=== PATIENT | male | born 1955 | race Caucasian/White ===

== ENCOUNTER → 2017-07-22 | Outpatient (CLI) | payer BC ==
[~2017-07-22] MED LIST: AFRIN15 ML NS; AMOXICILLIN 50500 MG PO; BAYER CHEWABLE81 MG PO; CRESTOR20 MG PO; HYDROCODON-ACE1 EAC7 PO; IBUPROFEN 400400 M2 PO; LANTUS SUBQ; LANTUS100 UNIT/M SUBQ; LEVOTHYROXIN0.075 MG PO; LIPITOR 20 MG T20 M1 PO; LISINOPRIL10 MG PO; LISINOPRIL2.5 MG PO; METFORMIN HCL500 MG PO; NITROGLYCERIN0.4 MG SUBLING; NORVASC5 MG PO; NOVOLOG100 UNIT/1 SUBQ; PANTOPRAZOLE SO40 MG PO; PLAVIX 75 MG TA75 M1 PO; PRILOSEC20 MG PO; TRAMADOL 50 MG50 MG PO; TRESIBA FL100 UNIT/1 SUBLING
--- NOTE | 2017-07-23 15:55 | CNG ---
[address] [address] CYTO-NONGYN REPORT PROCEDURE Name: SANGITA VERMA Room: [facility]#: [id number] Admission: 07/22/17 Date of : 57 Discharge: Report #: [id number] Path Case #: [id number] CYTOPATHOLOGY REPORT COLLECTION DATE: 07/22/2017 RECEIVED DATE: 07/22/2017 SUBMITTING PHYS: Dr. Christiano Gaffney OTHER PHYS: Dr. Yeimy Madrid MD CLINICAL HISTORY: 1.0 x .88 x 1.0 mid left lobe SPECIMEN(S) RECEIVED: A.Fine needle aspiration, Left lobe thyroid * * * * * * * * * * * * FINAL DIAGNOSIS: A. Fine needle aspiration, Left lobe thyroid: - Knapp category: Benign - Thyroid follicular cells and colloid present, consistent with adenomatous nodule/goiter. PATHOLOGIST: Ancelmo Montana M.D. REPORT ELECTRONICALLY SIGNED BY: Ancelmo Montana M.D. DATE/TIME: 07/23/2017 15:55 * * * * * * * * * * * * GROSS PATHOLOGY: A. Fine needle aspiration, Left lobe thyroid: The specimen is labeled "Sangita Verma" and consists of eight fixed slides and eight air dried slides. Twenty-one mL of bloody fluid in fixative from the needle rinse is also submitted and one ThinPrep slide and an alcohol fixed cell block were prepared from this material. (mm 1.11.2018) PROFESSOR OF ARCHAEOLOGY(S): TRENT Lezama([facility]) INITIAL CPT CODE(S): A; 34471, 71236 Professional services performed [place] [facility] [place] [address] Technical services performed by [facility] at [address] [place] [address], [address], [place] [address]. [facility] [address] [place] [address], [address] [place] [address] CYTO-NONGYN REPORT PROCEDURE Name: SANGITA VERMA Room: [facility]#: [id number] Admission: 07/22/17 Date of : 57 Discharge: Report #: [id number] Path Case #: [id number] PHONE: [phone] DIRECTOR: Thomas Petersen M.D. * * * END OF REPORT * * *
== END ==
LOC: M.ULTRA 07:51
DX: E04.1 Nontoxic single thyroid nodule (principal); I95.9 Hypotension, unspecified; I25.2 Old myocardial infarction; Z88.6 Allergy status to analgesic agent; Z88.1 Allergy status to other antibiotic agents; Z79.82 Long term (current) use of aspirin; Z88.8 Allergy status to other drugs, medicaments and biological substances; Z79.4 Long term (current) use of insulin

== ENCOUNTER 2017-11-14 15:44 | Emergency (ER) | payer BC ==
[~2017-11-14] VITALS: Ht 188 cm; Wt 98.9 kg
[~2017-11-14 15:44] MED LIST changes: -AMOXICILLIN 50500 MG PO; -CRESTOR20 MG PO; -NOVOLOG100 UNIT/1 SUBQ; -TRAMADOL 50 MG50 MG PO; -TRESIBA FL100 UNIT/1 SUBLING
[2017-11-14] MEDS ORDERED: CRESTOR20 MG PO (15:58)
[2017-11-14] MEDS ORDERED: AMOXICILLIN 50500 MG PO (15:58)
[2017-11-14] MEDS ORDERED: NOVOLOG100 UNIT/1 SUBQ (15:59)
[2017-11-14] MEDS ORDERED: TRESIBA FL100 UNIT/1 SUBLING (15:59)
[2017-11-14] MEDS ORDERED: TRAMADOL 50 MG50 MG PO (16:00)
[2017-11-14 16:02] LABS: ABSOLUTE BASOPHILS 0.1 thou/uL (0.0-0.2); ABSOLUTE EOSINOPHILS 0.1 thou/uL (0.0-0.7); ABSOLUTE LYMPHOCYTES 3.7 thou/uL (0.8-5.3); ABSOLUTE MONOCYTES 0.8 thou/uL (0.0-1.2); ABSOLUTE NEUTROPHILS 6.9 thou/uL (1.6-8.1); BASOPHILS 0.8 %; EOSINOPHILS 0.8 %; HEMATOCRIT 43.7 % (42.0-52.0); HEMOGLOBIN 14.8 gm/dL (14.0-18.0); LYMPHOCYTES 31.7 %; MCH 29.8 pg (26.0-34.0); MCHC 33.9 g/dL (28.0-37.0); MCV 88.1 fL (80.0-100.0); MONOCYTES 6.9 %; MPV 8.1 fl. (7.2-11.1); NUCLEATED RBCS 0 /100WBC; PLATELET COUNT* 243 thou/uL (150-400); POLYS 59.8 %; RBC 4.96 mil/uL (4.50-6.00); RDW-CV 14.2 % (10.5-14.5); WBC 11.6 thou/uL (4.0-11.0)
[2017-11-14 16:16] LABS: ANION GAP 11 mmol/L (7-16); BUN 17 mg/dL (7-18); CALCIUM 9.2 mg/dL (8.5-10.1); CHLORIDE 103 mmol/L (98-107); CO2 25 mmol/L (21-32); CREATININE 1.2 mg/dL (0.6-1.3); GLUCOSE 153 mg/dL (70-99); POTASSIUM 3.7 mmol/L (3.5-5.1); SODIUM 139 mmol/L (136-145)
[2017-11-14 16:18] LABS: APTT 27.8 Seconds (25.0-31.3); INR 1.1; PROTIME 10.6 Seconds (9.20-11.50)
[2017-11-14 16:27] LABS: ALBUMIN 3.4 g/dL (3.4-5.0); ALKALINE PHOSPHATASE 53 U/L (46-116); LIPASE 141 U/L (73-393); MAGNESIUM 1.7 mg/dL (1.8-2.4); NT-PRO BRAIN NAT PEPTIDE 71 pg/mL (<300); SGOT 24 U/L (15-37); SGPT 40 U/L (30-65); TOTAL BILIRUBIN 0.5 mg/dL (<0.1-1.0); TOTAL PROTEIN 7.4 g/dL (6.4-8.2); TROPONIN-I LEVEL <0.06 ng/mL (<0.06)
[2017-11-14 18:04] VITALS: BP 158/83
--- NOTE | 2017-11-15 14:09 | EKG ---
[place] [address] ELECTROCARDIOGRAM REPORT Name: KASSIE VERMA Room: [facility]#: [id number] Admission: 11/14/17 Attend Phys: Discharge: 11/14/17 Date of : 57 Report #: [id number] THIS REPORT FOR: //name// [facility] ED Test Date: 2017-11-14 Test Time: 15:48:07 Pat Name: KASSIE VERMA Department: Room: Gender: M Clinical Laboratory Technologist: Sony MEEKS : 1955 Requested By: Mehran Corley Order Number: [id number] MD: Agustín Quiñonez Measurements Intervals [place] Rate: 78 P: 49 NE: 148 QRS: 21 QRSD: 102 T: 171 QT: 406 QTc: 463 Interpretive Statements Sinus rhythm Nonspecific T abnrm, anterolateral leads; consider ischemia Baseline wander in lead(s) V3 Compared to ECG 06/07/2015 21:26:13 No significant changes Electronically Signed On 11-15-2017 14:09:34 CDT by Agustín Quiñonez [email or web address] <ELECTRONICALLY SIGNED> By: Agustín Quiñnoez MD, [facility] 11/15/17 1409 1548 1548 Agustín Quiñonez MD, [facility] /EPI
--- NOTE | 2017-11-15 14:10 | EKG ---
[place] [address] ELECTROCARDIOGRAM REPORT Name: BAYRONKASSIE Isabella Room: [facility]#: [id number] Admission: 11/14/17 Attend Phys: Discharge: 11/14/17 Date of : 57 Report #: [id number] THIS REPORT FOR: //name// [facility] ED Test Date: 2017-11-14 Test Time: 17:32:32 Pat Name: KASSIE VERMA Department: Room: Gender: M Retail Account Representative: ERVIN : 1955 Requested By: Mehran Corley Order Number: [id number] MD: Agustín Quiñonez Measurements Intervals [place] Rate: 52 P: 17 [place]: 173 QRS: 12 QRSD: 111 T: 121 QT: 466 QTc: 434 Interpretive Statements Sinus rhythm Abnormal T, consider ischemia, lateral leads Compared to ECG 06/07/2015 21:26:13 T-wave abnormality now present Possible ischemia now present Electronically Signed On 11-15-2017 14:09:58 CDT by Agustín Quiñonez [email or web address] <ELECTRONICALLY SIGNED> By: Agustín Quiñonez MD, [facility] 11/15/17 1409 1732 1732 Agustín Quiñonez MD, [facility] /EPI
== END 2017-11-14 18:05 | disposition home or self-care (01) ==
LOC: M.ERS 15:44
PROVIDERS: Family Medicine
DX: R07.89 Other chest pain (principal); E11.9 Type 2 diabetes mellitus without complications; Z88.1 Allergy status to other antibiotic agents; Z88.6 Allergy status to analgesic agent; Z88.8 Allergy status to other drugs, medicaments and biological substances; Z95.5 Presence of coronary angioplasty implant and graft; Z79.4 Long term (current) use of insulin

== ENCOUNTER 2018-07-15 10:46 | Observation (INO) | payer BC ==
[~2018-07-15] VITALS: Ht 188 cm; Wt 98.4 kg
[2018-07-15] VITALS (10 sets, daily range): BP systolic 113–159; BP diastolic 66–83
[~2018-07-15 10:46] MED LIST changes: +AMOXICILLIN 50500 MG PO; +CRESTOR20 MG PO; +NOVOLOG100 UNIT/1 SUBQ; +TRAMADOL 50 MG50 MG PO; +TRESIBA FL100 UNIT/1 SUBLING
[2018-07-15 11:12] LABS: ABSOLUTE BASOPHILS 0.1 thou/uL (0.0-0.2); ABSOLUTE EOSINOPHILS 0.1 thou/uL (0.0-0.7); ABSOLUTE LYMPHOCYTES 2.6 thou/uL (0.8-5.3); ABSOLUTE MONOCYTES 0.7 thou/uL (0.0-1.2); BASOPHILS 1.2 %; EOSINOPHILS 1.5 %; HEMATOCRIT 49.9 % (42.0-52.0); HEMOGLOBIN 16.7 gm/dL (14.0-18.0); LYMPHOCYTES 27.3 %; MCH 29.5 pg (26.0-34.0); MCHC 33.5 g/dL (28.0-37.0); MCV 88.1 fL (80.0-100.0); MONOCYTES 7.1 %; MPV 9.1 fl. (7.2-11.1); NUCLEATED RBCS 0 /100WBC; PLATELET COUNT* 244 thou/uL (150-400); POLYS 62.9 %; RBC 5.67 mil/uL (4.50-6.00); RDW-CV 14.1 % (10.5-14.5); WBC 9.6 thou/uL (4.0-11.0)
[2018-07-15 11:19] LABS: PROTIME 10.4 Seconds (9.20-11.50)
[2018-07-15 11:21] LABS: ANION GAP 10 mmol/L (7-16); BUN 15 mg/dL (7-18); CALCIUM 9.7 mg/dL (8.5-10.1); CHLORIDE 98 mmol/L (98-107); CO2 28 mmol/L (21-32); GLUCOSE 258 mg/dL (70-99); POTASSIUM 4.3 mmol/L (3.5-5.1); SODIUM 136 mmol/L (136-145)
[2018-07-15 11:31] LABS: ALBUMIN 3.7 g/dL (3.4-5.0); ALKALINE PHOSPHATASE 60 U/L (46-116); LIPASE 152 U/L (73-393); MAGNESIUM 1.7 mg/dL (1.8-2.4); NT-PRO BRAIN NAT PEPTIDE 66 pg/mL (<300); SGOT 50 U/L (15-37); SGPT 65 U/L (30-65); TOTAL BILIRUBIN 0.6 mg/dL (<0.1-1.0); TOTAL PROTEIN 8.1 g/dL (6.4-8.2); TROPONIN-I LEVEL <0.06 ng/mL (<0.06)
--- NOTE | 2018-07-15 11:43 | NUR ---
SEE CODE STEMI FLOW SHEET
[2018-07-15 15:33] LABS: TROPONIN-I LEVEL <0.06 ng/mL (<0.06)
--- NOTE | 2018-07-15 15:49 | NUR ---
PATIENT ARRIVED TO ICU ROOM 03 FROM THE DIRECT CARE WORKER AT 1320 THIS AFTERNOON. PATIENT WAS AWAKE AND ALERT. RIGHT GROIN SITE IS CLEAN, DRY, AND INTACT WITHOUT HEMATOMA. NO BRUIE NOTED. PATIENTS AT BEDSIDE. FREQUENT VITALS AND GROIN CHECK CHARTED. NO FURTHER CONCERNS AT THIS TIME. WILL CONTINUE TO MONITOR AND CARE PER PLAN OF CARE.
--- NOTE | 2018-07-15 18:15 | EKG ---
[place] [address] ELECTROCARDIOGRAM REPORT Name: KASSIE VERMA Room: [address] M.R.#: [id number] Admission: 07/15/18 Attend Phys: Rob Suarez MD, F Discharge: Date of : 57 Report #: [id number] THIS REPORT FOR: //name// [facility] ED Test Date: 2018-07-15 Test Time: 10:50:37 Pat Name: KASSIE VERMA Department: Room: [facility] Gender: M Magistrate: Sony MEEKS : 1955 Requested By: Bertrand Weinstein Order Number: [id number] MD: Jeffrey Skelton Measurements Intervals [place] Rate: 47 P: 6 NM: 151 QRS: 14 QRSD: 152 T: 177 QT: 449 QTc: 397 Interpretive Statements Sinus bradycardia Premature atrial contraction Nonspecific ST-T wave abnormality, consider ischemia Compared to ECG 11/14/2017 17:32:32 ST-T wave abnormalities appear more pronounced Electronically Signed On 07-15-2018 18:15:44 OUTSIDE FOOD SERVER by Jeffrey Skelton [email or web address] <ELECTRONICALLY SIGNED> By: Jeffrey Skelton MD, FACC 07/15/18 1815 1050 1050 Jeffrey Skelton MD, [facility] /EPI
--- NOTE | 2018-07-15 18:16 | EKG ---
[place] [address] ELECTROCARDIOGRAM REPORT Name: KASSIE VERMA Room: [address] M.R.#: [id number] Admission: 07/15/18 Attend Phys: Rob Suarez MD, F Discharge: Date of : 57 Report #: [id number] THIS REPORT FOR: //name// [facility] ED Test Date: 2018-07-15 Test Time: 11:21:42 Pat Name: KASSIE VERMA Department: Room: [address] Gender: M Photograph Editor: Sony MEEKS : 1955 Requested By: Rob Suarez Order Number: [id number] MD: Jeffrey Skelton Measurements Intervals [place] Rate: 79 P: [place]: QRS: 43 QRSD: 105 T: 133 QT: 389 QTc: 447 Interpretive Statements Accelerated junctional rhythm Incomplete right bundle branch block Inferior infarct, acute (RCA) Probable RV involvement, suggest recording right precordial leads Compared to ECG 11/14/2017 17:32:32 Accelerated junctional rhythm now present RSR' in V1 or V2 now present Myocardial infarct finding now present Sinus rhythm no longer present T-wave abnormality no longer present Possible ischemia no longer present Electronically Signed On 07-15-2018 18:16:29 MEAL COOK by Jeffrey Skelton [email or web address] <ELECTRONICALLY SIGNED> By: Jeffrey Skelton MD, [facility] 07/15/18 1816 112 112 Jeffrey Skelton MD, [facility] /EPI
--- NOTE | 2018-07-15 18:16 | EKG ---
[place] [address] ELECTROCARDIOGRAM REPORT Name: KASSIE VERMA Room: [address] M.R.#: [id number] Admission: 07/15/18 Attend Phys: Rob Suarez MD, F Discharge: Date of : 57 Report #: [id number] THIS REPORT FOR: //name// [facility] ED Test Date: 2018-07-15 Test Time: 11:12:55 Pat Name: KASSIE VERMA Department: Room: [facility] Gender: M Sixth Grade Teacher: Sony MEEKS : 1955 Requested By: Bertrand Weinstein Order Number: [id number] MD: Jeffrey Skelton Measurements Intervals [place] Rate: 74 P: [place]: QRS: 26 QRSD: 115 T: 133 QT: 396 QTc: 440 Interpretive Statements Accelerated junctional rhythm Incomplete right bundle branch block Inferior infarct, acute (RCA) Probable RV involvement, suggest recording right precordial leads Compared to ECG 11/14/2017 17:32:32 Accelerated junctional rhythm now present Incomplete right bundle-branch block now present Myocardial infarct finding now present Sinus rhythm no longer present T-wave abnormality no longer present Possible ischemia no longer present Electronically Signed On 07-15-2018 18:16:03 LOG YARD DERRICK OPERATOR by Jeffrey Skelton [email or web address] <ELECTRONICALLY SIGNED> By: Jeffrey Skelton MD, [facility] 07/15/18 1816 11 111 Jeffrey Skelton MD, [facility] /EPI
--- NOTE | 2018-07-15 18:19 | EKG ---
[place] [address] ELECTROCARDIOGRAM REPORT Name: KASSIE VERMA Room: [address] M.R.#: [id number] Admission: 07/15/18 Attend Phys: Rob Suarez MD, F Discharge: Date of : 57 Report #: [id number] THIS REPORT FOR: //name// [facility] Test Date: 2018-07-15 Test Time: 14:02:08 Pat Name: KASSIE VERMA Department: Room: [facility] Gender: M Fancy Packer: : 1955 Requested By: Bertrand Weinstein Order Number: [id number] MD: Jeffrey Skelton Measurements Intervals [place] Rate: 53 P: 52 [place]: 163 QRS: 7 QRSD: 107 T: 115 QT: 467 QTc: 439 Interpretive Statements Sinus rhythm Nonspecific T abnormalities, lateral leads Compared to ECG 11/14/2017 17:32:32 Possible ischemia no longer present T-wave abnormality still present Electronically Signed On 07-15-2018 18:19:15 SENIOR CONTROL SYSTEMS ENGINEER by Jeffrey Skelton [email or web address] <ELECTRONICALLY SIGNED> By: Jeffrey Skelton MD, FACC 07/15/18 1819 1402 1402 Jeffrey Skelton MD, FAC /EPI
[2018-07-16] VITALS (12 sets, daily range): BP systolic 107–160; BP diastolic 51–99
--- NOTE | 2018-07-16 04:23 | NUR ---
PT RESTING IN BED MOST OF NIGHT WITH NO COMPLAINTS OF CHEST PAINS OR SHORTNESS OF BREATH. ASSESSMENT CHARTED. CATH SITE IS STILL C/D/INTACT WITH NO HEMOTOMA. VSS. PT MOVED TO CHAIR PER REQUEST. CALL LIGHT IN REACH. ALL NEEDS ADDRESSED. CONTINUE WITH PLAN OF CARE.
[2018-07-16 04:26] LABS: HEMATOCRIT 44.6 % (42.0-52.0); HEMOGLOBIN 14.9 gm/dL (14.0-18.0); MCH 29.6 pg (26.0-34.0); MCHC 33.4 g/dL (28.0-37.0); MCV 88.8 fL (80.0-100.0); MPV 8.6 fl. (7.2-11.1); RBC 5.02 mil/uL (4.50-6.00); RDW-CV 14.2 % (10.5-14.5); WBC 11.1 thou/uL (4.0-11.0)
[2018-07-16 04:49] LABS: ALBUMIN 3.2 g/dL (3.4-5.0); ALKALINE PHOSPHATASE 42 U/L (46-116); ANION GAP 9 mmol/L (7-16); BUN 19 mg/dL (7-18); CALCIUM 8.5 mg/dL (8.5-10.1); CHLORIDE 104 mmol/L (98-107); CHOLESTEROL 138 mg/dL (<200); CK-MB MASS 1.5 ng/mL (<0.5-3.6); CO2 26 mmol/L (21-32); CREATININE 1.1 mg/dL (0.6-1.3); GLUCOSE 141 mg/dL (70-99); HDL CHOLESTEROL 37 mg/dL (>40); LDL CHOLESTEROL 71 mg/dL (<100); POTASSIUM 4.2 mmol/L (3.5-5.1); SGOT 42 U/L (15-37); SGPT 54 U/L (30-65); SODIUM 139 mmol/L (136-145); TC:HDL 3.7 Ratio (Not establshd); TOTAL BILIRUBIN 0.6 mg/dL (<0.1-1.0); TOTAL PROTEIN 6.8 g/dL (6.4-8.2); TRIGLYCERIDE 152 mg/dL (<150); TROPONIN-I LEVEL 0.12 ng/mL (<0.06); VLDL 30 mg/dL (<40)
[2018-07-16 05:05] LABS: SERUM ASSESSMENT Clear
--- NOTE | 2018-07-16 11:57 | EKG ---
[place] [address] ELECTROCARDIOGRAM REPORT Name: KASSIE VERMA Room: [address] M.R.#: [id number] Admission: 07/15/18 Attend Phys: Rob Suarez MD, F Discharge: Date of : 57 Report #: [id number] THIS REPORT FOR: //name// [facility] Test Date: 2018-07-16 Test Time: 07:40:23 Pat Name: KASSIE VERMA Department: Room: [address] Gender: M After School Coordinator: : 1955 Requested By: Rob Suarez Order Number: [id number] MD: Rob Suarez Measurements Intervals [place] Rate: 51 P: 43 [place]: 156 QRS: 14 QRSD: 105 T: 123 QT: 462 QTc: 426 Interpretive Statements Sinus bradycardia Nonspecific T abnormalities, lateral leads Compared to ECG 07/15/2018 14:02:08 No significant changes Electronically Signed On 07-16-2018 11:57:25 SENIOR CLINICIAN by Rob Suarez [email or web address] <ELECTRONICALLY SIGNED> By: Rob Suarez MD, [facility] 07/16/18 1157 0740 9 Rob Suarez MD, [facility] /EPI
--- NOTE | 2018-07-16 13:28 | H ---
[place] [address] HISTORY AND PHYSICAL Name: KASSIE VERMA Room: [address] M.R.#: [id number] Admission: 07/15/18 Attend Phys: Rob Suarez MD, F Discharge: Date of : 57 Report #: [id number] THIS REPORT FOR: //name// CC: Rob Moreno DATE OF SERVICE: 07/15/2018 PRIMARY CARE PHYSICIAN: Yeimy Verma Meng, DO HISTORY OF PRESENT ILLNESS: The patient is a 62-year-old white male who came to the Emergency Room complaining of chest pain. The history is obtained from the . No old records available. The patient presented in 2014 with chest pain. He had 2 coronary artery stents placed at [facility] on the [place]. Apparently, he had restenosis. According to , he had to have another stent placed a month later. He has done well since that time. He now takes only an aspirin a day. He is followed by a lockstitch coat joiner, Dr. Thorpe who he sees in [place], [place] from . He goes for walks regularly. He was doing well until last night, at about 6:00 p.m. he began to have some chest pressure. It occurred off and on. When he woke up this morning, again he had some chest pressure. It tended to occur off and on. It radiated to his left arm. It made him nausea and diaphoretic. His drove him to the Emergency Room. He was found to be having acute inferior STEMI. I was asked to see him on an emergent basis. He denies any recent shortness of breath. He does feel lightheaded occasionally. He denied any palpitations or syncope. PAST MEDICAL HISTORY: He has had hernia repair and tonsillectomy. He has a history of non-Hodgkin's lymphoma. He finished chemotherapy about 3 years ago. He has diabetes and hyperlipidemia. MEDICATIONS: Consists of tramadol, insulin, Crestor, Protonix, aspirin, Synthroid. ALLERGIES: HE HAS AN ALLERGY TO AN ANTIBIOTIC. FAMILY HISTORY: His father had a heart attack. SOCIAL HISTORY: He is . He and his live here in [place]. He is a retired Dental Office Receptionist. Quit smoking years ago. No alcohol abuse. REVIEW OF SYSTEMS: No history of stroke, asthma or peptic ulcer disease. He has had elevated liver function studies in the past, worsening on higher doses of statin. No history of kidney disease, no psychiatric history, [place] [address] HISTORY AND PHYSICAL Name: KASSIE VERMA Room: [address] M.RTrav#: [id number] Admission: 07/15/18 Attend Phys: Rob Suarez MD, F Discharge: Date of : 57 Report #: [id number] PHYSICAL EXAMINATION: GENERAL: Revealed a middle-aged male, appeared in mild distress. VITAL SIGNS: Blood pressure 130/70, pulse is 70. HEENT: He is anicteric. Conjunctivae pink. Mucous membranes moist. NECK: Veins does not appear distended. No carotid bruits. CHEST: Clear to auscultation. CARDIOVASCULAR: Regular rate and rhythm, no murmur. ABDOMEN: Soft. EXTREMITIES: Had no edema. Posterior tibial pulse 2+ bilaterally. LABORATORY DATA: ECG shows sinus rhythm, inferior ST segment elevation consistent with inferior STEMI. IMPRESSION AND RECOMMENDATIONS: 1. Acute inferior ST elevation myocardial infarction, recommend cardiac catheterization. 2. Coronary artery disease with previous stents. 3. History of non-Hodgkin's lymphoma. 4. Hyperlipidemia. The patient is on a statin drug. <ELECTRONICALLY SIGNED> By: Rob Suarez MD, FACC 07/16/18 1328 1142 1202Davihal Suarez MD, FACC /nt
[2018-07-16 14:45] LABS: CK-MB MASS 2.1 ng/mL (<0.5-3.6); CREATININE 1.1 mg/dL (0.6-1.3); TROPONIN-I LEVEL 0.27 ng/mL (<0.06)
--- NOTE | 2018-07-16 16:50 | NUR ---
PT CARE ASSUMED AFTER REPORT. ASSESSMENT COMPLETE. SB ON MONITOR. DR DANIELS NOTIFIED THAT PT HR IN THE 40'S. METOPROLOL DOSE DECREASED. SURGICAL SITE BANDAGE C/D/I. NO BRUISING NOTED. NOW TELE STATUS. DENIES PAIN. PROGRESSING TOWARDS GOALS.
[2018-07-17 04:04] VITALS: BP 161/82
--- NOTE | 2018-07-17 06:07 | NUR ---
PT. PROGRESSING TOWARDS GOALS. SINUS BRADYCARDIA THROUGHOUT SHIFT. DENIED CHEST PAIN THROUGHOUT SHIFT. UP AD [place] INDEPENDENTLY. POSSIBLE DISCHARGE TODAY. WILL CONTINUE TO MONITOR.
[2018-07-17 08:00] VITALS: BP 127/64
[2018-07-17] MEDS ORDERED: PLAVIX 75 MG TA75 M1 PO (09:21)
[2018-07-17 09:38] VITALS: BP 127/64
[2018-07-17] MEDS ORDERED: LOPRESSOR25 PO (10:35)
--- NOTE | 2018-07-18 16:40 | CARD ---
[address] [address] CARDIAC CATH REPORT Name: KASSIE VERMA Room: [address] Madhu#: [id number] Admission: 07/15/18 Attend Phys: Rob Suarez MD, F Discharge: 07/17/18 Date of : 57 Report #: [id number] THIS REPORT FOR: //name// APPROVED REPORT Study performed: 07/15/2018 11:11:15 Patient Details Patient Status: ED Room #: The patient is a 62 year-old male Event Personnel Rob Suarez Assayer, Hina Ha RN Chocolate Molder, Cady Mccall RTR Monitor, Samson Baig (R) Scrub Procedures Performed Art Access - R femoral artery* Left Heart Cath w/or w/o Coronaries LHC VALENTIN Place w/wo Plasty Single RCA Hemostasis w/ Angioseal Indication STEMI , Chest pain Risk Factors Diabetes Previous Procedures/Diagnoses Previous PCI Admission/Lab Medications/Medications given during procedure Glycoprotein IllbIlla Inhibitors, Heparin Unfract. Procedure Narrative The patient was brought emergently to the Cardiac Catheterization Laboratory and was prepped and draped in a sterile manner. The right femoral was infiltrated with 2% Lidocaine subcutaneous anesthesia. A 6fr Ultimum Sheath sheath was inserted into the right femoral artery. Coronary angiography was performed using coronary diagnostic catheters. The right coronary system was accessed and visualized with a Diagnostic 6Fr JR4 catheter. The left coronary system was accessed and visualized with a Diagnostic 6Fr JL4 catheter. The left ventricle was accessed and visualized with a Diagnostic 6Fr angled pigtail catheter. Left ventricular/[place]ortic [place] [address] CARDIAC CATH REPORT Name: KASSIE VERMA Room: [address] Madhu#: [id number] Admission: 07/15/18 Attend Phys: Rob Suarez MD, F Discharge: 07/17/18 Date of : 57 Report #: [id number] catheter pullback. Left ventriculogram was performed in DANIEL projection. Closure device was deployed with a 6 Fr 6Fr Angioseal. The patient tolerated the procedure well and there were no complications associated with the procedure. There was no hematoma. Intraoperative Conscious Sedation Sedation start time: 1142 Case end Time: 1253 Fentanyl 25 mcg Versed 2 mg Fluoro Time: 16.7 minutes Dose: DAP 989390 cGycm2 1837 mGy Contrast Type and Amount: Omnipaque 300 ml Coronary Angiography The patient's coronary anatomy is co- dominant. Diagnostic Cath Left Main 0% stenosis LAD proximal stent with 0% restenosis, distal 60% stenosis noted Diagonal 2 80% mid stenosis Circumflex mid stent with 60% restenosis OM1 proximal stent with 80% resenosis Right Coronary ostial stent with 99% restenosis with thrombus. stent at acute margin with 90% restenosis R PDA 70% mid stenosis Left Ventriculography The left ventricle is normal in size with normal contractility. The left ventricular ejection fraction is estimated to be 55-60%. Left ventricular wall motion abnormalities are not present. There is no mitral insufficiency. Hemodynamics The aortic pressure is 144/61 mmHg with a mean of 95 mmHg. The left ventricular pressure is 139/10 mmHg with a mean of mmHg. The left ventricular end diastolic pressure is 14 mmHg. There was no gradient across the aortic valve upon pullback. Pullback from the left ventricle to the aorta revealed no gradient across the aortic valve. PCI Technique Lesion Anticoagulation was achieved with Heparin. bolus of IV aggrastat given Percutaneous coronary [place] [address] CARDIAC CATH REPORT Name: KASSIE VERMA Isabella [address]: [address] [id number] Admission: 07/15/18 Attend Phys: Rob Suarez MD, F Discharge: 07/17/18 Date of : 57 Report #: [id number] right coronary artery. The lesion stenosis prior to intervention was 90% with FRIDA 3 flow. A 6FR JCR 4 100CM Guide Catheter was used to engage the rca ostium. A BMW 190cm Interventional Guidewire was used to cross the lesion. BALLOON DILATION A Balloon catheter Trek RX 2.5 X 8 was inserted and inflated up to 8.00atm for 9seconds. Repeat angiography revealed the following post-dilatation results: 60% stenosis. Additional Inflation: 10.00atm for 7seconds. Additional Inflation: 11.00atm for 22seconds. Unable to advance neither a drug eluting nor bare metal stent despite use of sundeep guide wire. Difficutly appeared to be secondary to tortuosity and calcification of rca. Performed PTCA only. Final angiography reveals 60 % stenosis with FRIDA 3 flow. PCI Technique Lesion 2 Percutaneous Coronary Intervention was performed on the proximal right coronary artery. Percutaneous coronary intervention was performed on the proximal right coronary artery. The lesion stenosis prior to intervention was 99% with FRIDA 3 flow. A 6FR JCR 4 100CM Guide Catheter was used to engage the rca ostium. A BMW 190cm Interventional Guidewire was used to cross the lesion. Balloon Dilation A Balloon catheter Trek RX 2.5 X 8 was inserted and inflated up to 10.00atm for 11seconds. Repeat angiography revealed the following post-dilatation results: 50% stenosis. Additional Inflation: 8.00atm for 5seconds. Additional Inflation: 10.00atm for 9seconds. Proximal thrombus noted. Stent Deployment A drug-eluting stent 2.5 mm x 12 mm was inserted and inflated up to 8.00atm for 5seconds. Repeat angiography revealed the following post-stent deployment results: 0% stenosis without thrombus. Additional Inflation: 10.00atm for 11seconds. Additional Inflation: 10.00atm for 9seconds. Final angiography reveals 0 % stenosis with FRIDA 3 flow. Conclusion 1. no restenosis of stent in proximal lad 2. 60% restenosis of stent in mid circumflex and 80% restenosis of stent in first marginal branch 3. 99% restenosis of stent in ostium of rca, and 90% stenosis of [address] [address] CARDIAC CATH REPORT Name: KASSIE VERMA Room: [address] TatyanaTravR.#: [id number] Admission: 07/15/18 Attend Phys: Rob Suarez MD, F Discharge: 07/17/18 Date of : 57 Report #: [id number] stent in mid rca 4. successful placement of a drug eluting stent in the ostium of the rca 5. PTCA of the mid rca but unable to place stent because of tortuosity and calcification 6. normal LV function Recommendations Cardiac Rehabilitation Referral Aggressive Medical Therapy Medications Administered Clopidogrel <ELECTRONICALLY SIGNED> By: Rob Suarez MD, FACC 07/18/18 1640 1640 1640Davasile Suarez MD, [facility] /INF
--- NOTE | 2018-07-18 16:44 | D ---
[address] [address] DISCHARGE SUMMARY Name: KASSIE VERMA Room: [address] Madhu#: [id number] Admission: 07/15/18 Attend Phys: Rob Suarez MD, F Discharge: 07/17/18 Date of : 57 Report #: [id number] THIS REPORT FOR: //name// CC: Rob Moreno DATE OF SERVICE: 07/15/2018 DISCHARGE DIAGNOSES: 1. Acute inferior ST segment elevation myocardial infarction. 2. Coronary artery disease. 3. History of non-Hodgkin's lymphoma. CONSULTANTS: None. PROCEDURES: Emergent left heart catheterization with placement of a single drug-eluting stent in the proximal right coronary artery via the femoral approach. HISTORY OF PRESENT ILLNESS: The patient is a 62-year-old white male who came to the Emergency Room complaining of chest pain. No old records were available. The history is obtained from the patient and his . The patient apparently had 2 coronary artery stents placed at [facility] on the [address] in 2014. He apparently had restenosis and had additional coronary stenting. The patient currently is followed by Cardiology from in the clinic in [place], [place]. He takes only an aspirin a day. He has not had a stress test recently. He does go for walks frequently. He was doing well until the evening prior to admission about 6:00 p.m., he began to have chest pressure. It tended to occur off and on throughout the night. When he awakened the next morning, he again felt some chest pressure. It radiated into his left arm, made him nausea and diaphoretic. His drove him to the Emergency Room at [place]. Initial ECG showed nonspecific ST-segment changes. However, the chest pressure returned and he was noted to have inferior ST segment elevation on his ECG. A code STEMI was activated. I was asked to see him on an emergent basis. PAST MEDICAL HISTORY: Significant for hernia repair, non-Hodgkin's lymphoma 3 years ago. He has a history of diabetes and hyperlipidemia. MEDICATIONS: Consist of tramadol, insulin. He could not tolerate higher doses of statin drug because of elevated liver function studies. He is on Protonix, aspirin, Synthroid. He could not tolerate a beta danyell because of bradycardia. ALLERGIES: HE HAS INTOLERANCE [place] [address] DISCHARGE SUMMARY Name: KASSIE VERMA Room: [address]#: [id number] Admission: 07/15/18 Attend Phys: Rob Suarez MD, F Discharge: 07/17/18 Date of : 57 Report #: [id number] PHYSICAL EXAMINATION: GENERAL: On admission, revealed a middle-aged male, in mild distress. VITAL SIGNS: Blood pressure is 130/70, pulse is 60. CHEST: Clear to auscultation. HEART: Regular rate and rhythm. ABDOMEN: Soft. EXTREMITIES: Had no edema. DIAGNOSTIC DATA: ECG showed sinus rhythm, inferior ST segment elevation. His workup, he had a chest x-ray that showed normal heart size and clear lung melissa. LABORATORY DATA: Sodium 139, BUN 19, creatinine 1.1, glucose 141, SGOT 42, SGPT 54. His troponin on admission was 0.06. BNP 66. Cholesterol 138, triglyceride 152, HDL 37, LDL 71. TSH 2.3. White blood cell count 9.6, hemoglobin 16.7, normal platelet count. HOSPITAL COURSE: The patient was felt to be having an acute inferior STEMI. He was taken urgently to the Cardiac Catheterization Lab. I performed cardiac catheterization from the right femoral artery. Results showed normal left ventricular function. Ejection fraction estimated at 60%. There was a stent in the proximal LAD that had no significant restenosis. There was a 60% narrowing of a diagonal branch. The circumflex appeared to have a stent in its mid portion with a 60% restenosis. There is a stent in the first marginal branch that appeared to have 80% restenosis. There was a stent in the proximal right coronary artery that appeared to have an ostial 99% stenosis with thrombus. There is also a distal coronary stent in the right coronary artery and had 90% restenosis. He was then given Aggrastat and heparin. I attempted angioplasty of the right coronary artery. Because of tortuosity and calcification, I was able to place a stent in the ostium with a good result. However, the mid 90% stenosis, I was unable to advance the stent to the area of stenosis despite using a support extra wire. I was able to balloon the area, but could not even advance a bare metal stent. It was decided to abandon further attempts after the amount of contrast used. The stent in the ostium looked well opposed; however, he continued to have a residual 90% narrowing at the acute margin of the vessel. He tolerated the procedure well and Angio-Seal was placed. Fortunately, he developed no hematoma in the groin. He had no further chest pain, arrhythmias or heart failure. Prior to discharge, the patient was seen by cardiac rehabilitation, began to ambulate without any further complaints. He cannot tolerate the higher dose of beta danyell because of bradycardia. At the time of discharge, the patient had no additional complaints. His blood pressure is 150/80, pulse is 60 and he is afebrile. Additional lab work during his hospitalization included a creatinine of 1.1. His peak troponin was only 0.27. Followup hemoglobin was 14.9. Follow up ECG showed sinus bradycardia, nonspecific ST-segment changes. Results of the hospitalization were discussed with the patient. He is felt to have diffuse [place] [address] DISCHARGE SUMMARY Name: KASSIE VERMA Room: [address]#: [id number] Admission: 07/15/18 Attend Phys: Rob Suarez MD, F Discharge: 07/17/18 Date of : 57 Report #: [id number] disease. I would recommend medical therapy at this time. Certainly, if he had recurrent angina, we will consider additional stenting of the right coronary artery and circumflex. He was discharged on his home medications included aspirin 81 mg a day, his insulin therapy, Synthroid 75 mcg a day. Crestor, he could tolerate 20 mg a day only. He had nitroglycerin to take as needed for chest pain. In addition, following stenting, he was placed on Plavix 75 mg a day. I did recommend a small dose of beta danyell and he was discharged on metoprolol only 12.5 mg twice a day. He was discharged to return to the care of Dr. Stoddard for routine medical care including management of his diabetes. I did recommend he follow up with Cardiology in [facility] within 1 week following his myocardial infarction. His prognosis is guarded due to his diffuse coronary artery disease. <ELECTRONICALLY SIGNED> By: Rob Suarez MD, FACC 07/18/18 1644 0853 [id number] Suarez MD, FACC /nt
== END 2018-07-17 10:45 | disposition home or self-care (01) ==
LOC: M.ERS 10:46 → M.CL 10:46 → M.TBA-CV 11:26 → M.ICU 13:32
PROVIDERS: Emergency Medicine Emergency Medical Services; ADMIT Internal Medicine Cardiovascular Disease
DX: I25.10 Atherosclerotic heart disease of native coronary artery without angina pectoris (principal); I21.9 Acute myocardial infarction, unspecified; C85.90 Non-Hodgkin lymphoma, unspecified, unspecified site; E11.9 Type 2 diabetes mellitus without complications; E78.5 Hyperlipidemia, unspecified; Z79.4 Long term (current) use of insulin; Z79.899 Other long term (current) drug therapy; Z87.891 Personal history of nicotine dependence; Z95.5 Presence of coronary angioplasty implant and graft; Z79.82 Long term (current) use of aspirin

== ENCOUNTER 2018-09-20 18:28 | Emergency (ER) | payer BC ==
[~2018-09-20] VITALS: Ht 188 cm; Wt 99.8 kg
[~2018-09-20 18:28] MED LIST changes: +LOPRESSOR25 PO
[2018-09-20] MEDS ORDERED: NOVOLOG100 UNIT/1 SUBQ (18:41)
[2018-09-20] MEDS ORDERED: NORCO 5-325 TA1 EACH PO (19:47)
[2018-09-20 20:16] VITALS: BP 114/66
== END 2018-09-20 20:18 | disposition home or self-care (01) ==
LOC: M.ERS 18:28
DX: G89.29 Other chronic pain (principal); M54.5 Low back pain; E11.9 Type 2 diabetes mellitus without complications; I25.10 Atherosclerotic heart disease of native coronary artery without angina pectoris; I10 Essential (primary) hypertension; Z88.1 Allergy status to other antibiotic agents; Z88.6 Allergy status to analgesic agent; Z88.8 Allergy status to other drugs, medicaments and biological substances; Z95.5 Presence of coronary angioplasty implant and graft; Z79.4 Long term (current) use of insulin

== ENCOUNTER 2019-01-10 05:56 | Observation (INO) | payer BC ==
[~2019-01-10] VITALS: Ht 188 cm; Wt 97.1 kg
[~2019-01-10 05:56] MED LIST changes: +NORCO 5-325 TA1 EACH PO
[2019-01-10 05:58] VITALS: BP 111/66
[2019-01-10 06:12] LABS: ABSOLUTE BASOPHILS 0.1 thou/uL (0.0-0.2); ABSOLUTE EOSINOPHILS 0.2 thou/uL (0.0-0.7); ABSOLUTE LYMPHOCYTES 4.1 thou/uL (0.8-5.3); ABSOLUTE MONOCYTES 0.6 thou/uL (0.0-1.2); ABSOLUTE NEUTROPHILS 5.1 thou/uL (1.6-8.1); BASOPHILS 1.1 %; EOSINOPHILS 1.5 %; HEMATOCRIT 46.7 % (42.0-52.0); HEMOGLOBIN 15.2 gm/dL (14.0-18.0); LYMPHOCYTES 40.9 %; MCH 29.3 pg (26.0-34.0); MCHC 32.6 g/dL (28.0-37.0); MONOCYTES 6.3 %; NUCLEATED RBCS 0 /100WBC; PLATELET COUNT* 206 thou/uL (150-400); POLYS 50.2 %; RBC 5.19 mil/uL (4.50-6.00); RDW-CV 14.2 % (10.5-14.5); WBC 10.1 thou/uL (4.0-11.0)
[2019-01-10 06:23] LABS: INR 1.1; PROTIME 11.2 Seconds (9.20-11.50)
[2019-01-10 06:34] LABS: ANION GAP 11 mmol/L (7-16); BUN 17 mg/dL (7-18); CHLORIDE 101 mmol/L (98-107); CO2 24 mmol/L (21-32); CREATININE 1.2 mg/dL (0.6-1.3); GLUCOSE 373 mg/dL (70-99); SODIUM 136 mmol/L (136-145)
[2019-01-10 06:37] LABS: ALBUMIN 3.4 g/dL (3.4-5.0); ALKALINE PHOSPHATASE 79 U/L (46-116); LIPASE 204 U/L (73-393); NT-PRO BRAIN NAT PEPTIDE 79 pg/mL (<300); SGOT 44 U/L (15-37); SGPT 56 U/L (30-65); TOTAL BILIRUBIN 0.3 mg/dL (<0.1-1.0); TOTAL PROTEIN 7.3 g/dL (6.4-8.2); TROPONIN-I LEVEL <0.06 ng/mL (<0.06)
[2019-01-10 08:18] VITALS: BP 136/73
[2019-01-10 09:55] LABS: CHOLESTEROL 124 mg/dL (<200); HDL CHOLESTEROL 28 mg/dL (>40); LDL CHOLESTEROL 48 mg/dL (<100); TC:HDL 4.4 Ratio (Not establshd); TRIGLYCERIDE 243 mg/dL (<150); VLDL 49 mg/dL (<40)
[2019-01-10 09:56] LABS: SERUM ASSESSMENT Clear
--- NOTE | 2019-01-10 15:53 | EKG ---
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[place] : 1955 Requested By: Danni Mckeon Order Number: [id number] MD: Jeffrey Skelton Measurements Intervals [place] Rate: 75 P: 41 FL: 165 QRS: 12 QRSD: 128 T: 81 QT: 412 QTc: 461 Interpretive Statements Sinus arrhythmia Nonspecific ST-T wave abnormality, consider ischemia Compared to ECG 07/16/2018 07:40:23 Sinus bradycardia no longer present Electronically Signed On 01-10-2019 15:53:29 CDT by Jeffrey Skelton [email or web address] <ELECTRONICALLY SIGNED> By: Jeffrey Skelton MD, [facility] 01/10/19 1553 0601 0601 Jeffrey Skelton MD, [facility] /EPI
[2019-01-10 18:15] VITALS: BP 135/75
[2019-01-10 18:30] VITALS: BP 140/76
[2019-01-10 18:45] VITALS: BP 153/93
[2019-01-10 20:45] VITALS: BP 150/81
[2019-01-10 22:36] LABS: URINE BILIRUBIN NEGATIVE (Negative); URINE BLOOD 3+ (Negative); URINE CLARITY CLEAR; URINE COLOR YELLOW; URINE GLUCOSE-RANDOM TRACE (Negative); URINE KETONES NEGATIVE (Negative); URINE LEUKOCYTES-REFLEX NEGATIVE (Negative); URINE NITRITE-REFLEX NEGATIVE (Negative); URINE PROTEIN 1+ (Negative); URINE SPECIFIC GRAVITY <= 1.005 (1.005-1.030)
[2019-01-10 22:41] LABS: BACTERIA-REFLEX 1-9 Few /HPF (None Seen); CASTS None Seen /LPF (None Seen); CRYSTALS None Seen /LPF (None Seen); SQUAMOUS 0-3 Few /LPF (0-3); URINE RBC >20 Many /HPF (0-2); URINE WBC-REFLEX 0-5 Rare /HPF (0-5)
[2019-01-11] VITALS: BP 114/71
[2019-01-11 03:50] VITALS: BP 138/79
[2019-01-11 05:31] LABS: CALCIUM 9.1 mg/dL (8.5-10.1); POTASSIUM 3.7 mmol/L (3.5-5.1)
[2019-01-11 08:00] VITALS: BP 154/83
--- NOTE | 2019-01-11 09:11 | CON ---
[address] [address] CONSULTATION Name: KASSIE VERMA Room: [address] IN M.R.#: [id number] Admission: 01/10/19 Attend Phys: Barrera Prasad MD Discharge: Date of : 57 Report #: [id number] THIS REPORT FOR: //name// CC: MARK Verma DATE OF SERVICE: 01/10/2019 CARDIOLOGY CONSULTATION INDICATION: Chest pain and shortness of breath. HISTORY OF PRESENT ILLNESS: The patient is a very pleasant 63-year-old gentleman with history of coronary artery disease and multiple interventions. In 2014, he had 2 stents placed at [facility] on the [place]. The month following that he had another stent placed at [facility]. He presented to [facility] in July of 2018 with inferior wall NC and had a stent placed to the ostial right coronary artery. The patient has normal left ventricular systolic function by invasive and noninvasive studies. The patient has been having progressive chest discomfort for the last 3-4 days. Overnight, he had significant shortness of breath and was unable to get comfortable. This morning, he had nausea and vomiting. The patient was brought to the hospital for further evaluation. EKG did not show ST elevation. His initial troponin was unremarkable. At this point, he is chest pain free. He did receive aspirin in the Emergency Room. He is on Plavix chronically. He is not on a beta danyell, presumably due to his borderline bradycardia. PAST MEDICAL HISTORY: 1. Coronary artery disease as outlined above. 2. History of non-Hodgkin's lymphoma, status post chemotherapy, completed 4 years ago. 3. Diabetes. 4. Hyperlipidemia. PAST SURGICAL HISTORY: 1. Multiple coronary interventions outlined above. 2. Hernia repair. 3. Tonsillectomy. CURRENT MEDICATIONS: Tramadol, insulin, Crestor, Protonix, clopidogrel, Synthroid. ALLERGIES: MORPHINE, CEPHALEXIN, [place] [address] CONSULTATION Name: AILYNTIPFOZIAKASSIE Room: [address] IN [facility].#: [id number] Admission: 01/10/19 Attend Phys: Barrera Prasad MD Discharge: Date of : 57 Report #: [id number] FAMILY HISTORY: The patient's father of a heart attack. SOCIAL HISTORY: The patient is . His is his primary care provider. He is retired as a [employer] Manager. He quit smoking many years ago. He does not drink alcohol. REVIEW OF SYSTEMS: Positive for chest discomfort, shortness of breath, orthopnea, nausea, vomiting. No hematemesis and otherwise unremarkable. PHYSICAL EXAMINATION: VITAL SIGNS: Blood pressure 136/73, pulse 44 and regular. GENERAL: This is a pleasant gentleman who is in no distress. Mood and affect appropriate, somewhat blunted. HEENT: Extraocular muscles intact. Mucous membranes moist. NECK: Shows no jugular venous distention. There are no carotid bruits. CHEST: Reveals clear lung melissa without wheezes or rales. CARDIOVASCULAR: Reveals a regular rhythm with normal S1 and S2. I do not appreciate gallop or murmur. ABDOMEN: Reveals normal bowel sounds. The abdomen is soft, nontender. EXTREMITIES: Shows no edema. Peripheral pulses 2+ and palpable. LABORATORY DATA: Reviewed. Electrolytes are within normal limits. Renal function is normal. Serum glucose is 373. LFTs are within normal limits. Troponin is less than 0.06. NT-proBNP 79. Lipid profile shows total cholesterol 124, triglycerides 243, HDL 28 and LDL 48. Coags are within normal limits. CBC is within normal limits. Chest x-ray shows some mild chronic lung changes without acute process. IMPRESSION AND RECOMMENDATIONS: 1. Progressive symptoms to suggest unstable angina with chest pain and shortness of breath. We will proceed with left heart catheterization and possible intervention. Continue aspirin and Plavix at this time. He is not on a beta danyell due to bradycardia. 2. Coronary artery disease. Continue dual antiplatelet therapy at this time. 3. Hyperlipidemia, at goal on current dose of Crestor. 4. Diabetes per primary physician. 5. Hypertension, well controlled on current cardiac regimen. <ELECTRONICALLY SIGNED> By: Jeffrey Skelton MD, FACC 01/11/19 0911 1011 [id number] Skelton MD, FACC /nt
[2019-01-11 10:09] VITALS: BP 154/83
--- NOTE | 2019-01-11 10:36 | CARD ---
[address] [address] CARDIAC CATH REPORT Name: KASSIE VERMA MONO Room: [address] IN ..#: [id number] Admission: 01/10/19 Attend Phys: Barrera Prasad MD Discharge: Date of : 57 Report #: [id number] THIS REPORT FOR: //name// APPROVED REPORT Study performed: 01/10/2019 15:43:[address] Skelton; Dr. Quiñonez Procedures Performed Left heart catheterization left ventriculography selective coronary arteriography and percutaneous coronary intervention with deployment of a drug-eluting stent in the right coronary artery just distal to the acute margin Indication Unstable angina Risk Factors Obesity, Hypercholesterolemia, Hypertension Admission/Lab Medications/Medications given during procedure Angiomax bolus and infusion Procedure Narrative The patient was brought electively to the Cardiac Catheterization Laboratory and was prepped and draped in a sterile manner. The right femoral was infiltrated with 2% Lidocaine subcutaneous anesthesia. A 6 Italian sheath was inserted into the right femoral artery. Coronary angiography was performed using coronary diagnostic catheters. The right coronary system was accessed and visualized with a Diagnostic catheter. The left coronary system was accessed and visualized with a Diagnostic catheter. Left ventricular/Aortic Valve gradient assessed via catheter pullback. Left ventriculogram was performed in DANIEL projection. Pre-demployment femoral angiogram was performed . Closure device was deployed with a 6 Fr Angioseal. There was no hematoma. Diagnostic Cath Left Main 0% narrowing LAD Widely patent proximal LAD stents with 30% mid LAD narrowing Circumflex 40% ostial narrowing with 90% narrowing of the mid circumflex after the takeoff of the first marginal branch with 80% [address] [address] CARDIAC CATH REPORT Name: KASSIE VERMA MONO Room: [address] IN [facility]#: [id number] Admission: 01/10/19 Attend Phys: Barrera Prasad MD Discharge: Date of : 57 Report #: [id number] proximal first marginal stenosis Right Coronary 40% ostial narrowing with 90% stenosis just distal to the acute margin and 40% distal narrowing Left Ventriculography The left ventricle is normal in size with normal contractility. The left ventricular ejection fraction is estimated to be 60%. Left ventricular wall motion abnormalities are not present. There is no mitral insufficiency. Hemodynamics The aortic pressure is 140/70 mmHg with a mean of 82 mmHg. The left ventricular end diastolic pressure is 20 mmHg. There was no gradient across the aortic valve upon pullback. PCI Technique Lesion Anticoagulation was achieved with Angiomax. Percutaneous coronary intervention was performed on the distal right coronary artery. The lesion stenosis prior to intervention was 90% with FRIDA 3 flow. A 6 Italian JR4 Guide Catheter was used to engage the right ostium. A [employer] flex Interventional Guidewire was used to cross the lesion. BALLOON DILATION A Balloon catheter 2.0 x 8 mm trek was inserted and inflated up to 12atm for 10seconds. STENT DEPLOYMENT A drug-eluting stent 2.0 x 12 mm Musa was inserted and inflated up to 17atm for 10seconds. Final angiography reveals 10 % stenosis with FRIDA 3 flow. COMMENTS Difficulty achieving satisfactory guide stabilization; requirement of sundeep wire for stent postiioning. Conclusion #1 significant coronary artery disease characterized by the following: A widely patent proximal LAD stent with 30% mid LAD narrowing B 40% ostial circumflex narrowing with 90% mid vessel stenosis and 80% stenosis of the proximal portion of [place] [address] CARDIAC CATH REPORT Name: JOHNFOZIAKASSIE RAY Room: [address] IN [facility].#: [id number] Admission: 01/10/19 Attend Phys: Barrera Prasad MD Discharge: Date of : 57 Report #: [id number] C 40% ostial right coronary narrowing with 90% stenosis just distal to the acute margin and 40% distal narrowing #2 moderate elevation of left ventricular end-diastolic pressure at rest #3 successful percutaneous coronary intervention with deployment of a drug-eluting stent at site of 90% right coronary stenosis just distal to the acute margin with 10% residual narrowing and FRIDA-3 flow the distal vessel Recommendations Cardiac Risk Reduction Program Aggressive Medical Therapy Medications Administered Aspirin (any) Prasugrel Diagnostic Cath Approved by: Jeffrey Skelton MD Date/Time: 01/11/2019 10:34:58 <ELECTRONICALLY SIGNED> By: Agustín Quiñonez MD, FAC 01/11/19 1036 1036 1036Agustín Quiñonez MD, [facility] /INF
[2019-01-11] MEDS ORDERED: EFFIENT10 MG PO (14:42)
[2019-01-11] MEDS ORDERED: ASPIR 8181 MG PO (14:42)
[2019-01-11] MEDS ORDERED: BENAZEPRIL HCL20 MG PO (14:43)
[2019-01-11] MEDS ORDERED: DOK PLUS TABLE1 EACH PO (14:43)
[2019-01-11] MEDS ORDERED: LISINOPRIL10 MG PO (15:11)
[2019-01-11 15:18] VITALS: BP 154/83
== END 2019-01-11 15:55 | disposition home health service (06) ==
LOC: M.ERS 05:56 → M.TBA-ER 06:49 → M.2W 06:49
PROVIDERS: Emergency Medicine; Internal Medicine Cardiovascular Disease; ADMIT Family Medicine
DX: I25.110 Atherosclerotic heart disease of native coronary artery with unstable angina pectoris (principal); I12.9 Hypertensive chronic kidney disease with stage 1 through stage 4 chronic kidney disease, or unspecified chronic kidney disease; E11.22 Type 2 diabetes mellitus with diabetic chronic kidney disease; N18.2 Chronic kidney disease, stage 2 (mild); E03.9 Hypothyroidism, unspecified; I25.2 Old myocardial infarction; E78.5 Hyperlipidemia, unspecified; Z79.82 Long term (current) use of aspirin; G31.84 Mild cognitive impairment of uncertain or unknown etiology; R07.89 Other chest pain; E66.9 Obesity, unspecified; E78.00 Pure hypercholesterolemia, unspecified; Z85.71 Personal history of Hodgkin lymphoma; Z95.5 Presence of coronary angioplasty implant and graft; Z88.5 Allergy status to narcotic agent; Z88.8 Allergy status to other drugs, medicaments and biological substances; Z79.4 Long term (current) use of insulin; Z79.899 Other long term (current) drug therapy; Z87.891 Personal history of nicotine dependence

== ENCOUNTER 2019-02-03 09:35 | Emergency (ER) | payer BC ==
[~2019-02-03] VITALS: Ht 188 cm; Wt 98.0 kg
[~2019-02-03 09:35] MED LIST changes: +ASPIR 8181 MG PO; +BENAZEPRIL HCL20 MG PO; +DOK PLUS TABLE1 EACH PO; +EFFIENT10 MG PO
[2019-02-03] MEDS ORDERED: COZAAR 25 MG TA25 M1 PO (09:45)
[2019-02-03] MEDS ORDERED: IMDUR 30 MG TAB30 M1 PO (09:46)
[2019-02-03] MEDS ORDERED: VITAMIN D250 MCG PO ×2 (09:46→09:47)
[2019-02-03 10:04] LABS: ABSOLUTE BASOPHILS 0.1 thou/uL (0.0-0.2); ABSOLUTE EOSINOPHILS 0.1 thou/uL (0.0-0.7); ABSOLUTE LYMPHOCYTES 2.9 thou/uL (0.8-5.3); ABSOLUTE MONOCYTES 0.8 thou/uL (0.0-1.2); ABSOLUTE NEUTROPHILS 7.2 thou/uL (1.6-8.1); BASOPHILS 0.6 %; EOSINOPHILS 0.9 %; HEMATOCRIT 41.4 % (42.0-52.0); LYMPHOCYTES 26.4 %; MCH 29.4 pg (26.0-34.0); MCHC 33.7 g/dL (28.0-37.0); MCV 87.3 fL (80.0-100.0); MONOCYTES 7.4 %; MPV 8.4 fl. (7.2-11.1); NUCLEATED RBCS 0 /100WBC; PLATELET COUNT* 247 thou/uL (150-400); POLYS 64.7 %; RBC 4.75 mil/uL (4.50-6.00); RDW-CV 13.8 % (10.5-14.5); WBC 11.1 thou/uL (4.0-11.0)
[2019-02-03 10:16] LABS: BE -0.9 mmol/L (-2 to +3); PCO2 30.9 mmHg (35.0-45.0); PO2 94.9 mmHg (75.0-100.0); pH 7.467 (7.340-7.450)
[2019-02-03 10:26] LABS: ANION GAP 8 mmol/L (7-16); BUN 14 mg/dL (7-18); CALCIUM 9.6 mg/dL (8.5-10.1); CHLORIDE 102 mmol/L (98-107); CO2 27 mmol/L (21-32); GLUCOSE 105 mg/dL (70-99); POTASSIUM 3.8 mmol/L (3.5-5.1); SODIUM 137 mmol/L (136-145)
[2019-02-03 10:32] LABS: APTT 28.5 Seconds (25.0-31.3); PROTIME 10.5 Seconds (9.20-11.50)
[2019-02-03 10:39] LABS: ALBUMIN 3.5 g/dL (3.4-5.0); ALKALINE PHOSPHATASE 54 U/L (46-116); MAGNESIUM 1.8 mg/dL (1.8-2.4); NT-PRO BRAIN NAT PEPTIDE 98 pg/mL (<300); SGOT 31 U/L (15-37); SGPT 40 U/L (30-65); TOTAL BILIRUBIN 0.5 mg/dL (<0.1-1.0); TOTAL PROTEIN 7.7 g/dL (6.4-8.2); TROPONIN-I LEVEL <0.06 ng/mL (<0.06)
[2019-02-03] MEDS ORDERED: TESSALON PERLE100 MG PO (11:31)
[2019-02-03 12:14] VITALS: BP 173/84
--- NOTE | 2019-02-06 16:46 | EKG ---
[place] [address] ELECTROCARDIOGRAM REPORT Name: KASSIE VERMA MONO Room: [facility]#: [id number] Admission: 02/03/19 Attend Phys: Discharge: 02/03/19 Date of : 57 Report #: [id number] THIS REPORT FOR: //name// [facility] ED Test Date: 2019-02-03 Test Time: 09:42:14 Pat Name: KASSIE VERMA Department: Room: Gender: M Treater: : 1955 Requested By: Ernestine Constantino Order Number: [id number] MD: Jeffrey Skelton Measurements Intervals [place] Rate: 58 P: 7 NE: 143 QRS: 8 QRSD: 107 T: 63 QT: 444 QTc: 437 Interpretive Statements Sinus rhythm Borderline T wave abnormalities Baseline wander in lead(s) V2 Compared to ECG 01/10/2019 06:01:20 Sinus arrhythmia no longer present Possible ischemia no longer present T-wave abnormality still present Electronically Signed On 02-06-2019 16:46:16 CDT by Jeffrey Skelton [email or web address] <ELECTRONICALLY SIGNED> By: Jeffrey Skelton MD, FACC 02/06/19 1646 0942 0942 Jeffrey Skelton MD, FAC /EPI
== END 2019-02-03 12:14 | disposition home or self-care (01) ==
LOC: M.ERS 09:35
PROVIDERS: Personal Emergency Response Attendant
DX: R06.02 Shortness of breath (principal); R05 Cough; R51 Headache; I10 Essential (primary) hypertension; E11.9 Type 2 diabetes mellitus without complications; I25.10 Atherosclerotic heart disease of native coronary artery without angina pectoris; Z88.1 Allergy status to other antibiotic agents; Z88.5 Allergy status to narcotic agent

== ENCOUNTER 2019-02-10 09:37 | Inpatient (IN) | payer BC ==
[~2019-02-10] VITALS: Ht 188 cm; Wt 97.5 kg
[~2019-02-10 09:37] MED LIST changes: +COZAAR 25 MG TA25 M1 PO; +IMDUR 30 MG TAB30 M1 PO; +TESSALON PERLE100 MG PO; -TRESIBA FL100 UNIT/1 SUBLING; +TRESIBA FL100 UNIT/1 SUBQ; +VITAMIN D250 MCG PO
[2019-02-10 09:42] VITALS: BP 145/70
[2019-02-10] MEDS ORDERED: NITROGLYCERIN0.4 MG SUBLING (09:46)
[2019-02-10] MEDS ORDERED: VITAMIN D2400 UNIT PO (10:09)
[2019-02-10 10:23] LABS: BE -0.3 mmol/L (-2 to +3); PCO2 35.8 mmHg (35.0-45.0); pH 7.434 (7.340-7.450)
[2019-02-10 10:38] LABS: ABSOLUTE BASOPHILS 0.1 thou/uL (0.0-0.2); ABSOLUTE EOSINOPHILS 0.1 thou/uL (0.0-0.7); ABSOLUTE LYMPHOCYTES 2.6 thou/uL (0.8-5.3); ABSOLUTE MONOCYTES 0.6 thou/uL (0.0-1.2); ABSOLUTE NEUTROPHILS 5.9 thou/uL (1.6-8.1); BASOPHILS 0.9 %; EOSINOPHILS 1.2 %; HEMATOCRIT 40.6 % (42.0-52.0); HEMOGLOBIN 13.6 gm/dL (14.0-18.0); LYMPHOCYTES 27.8 %; MCH 29.1 pg (26.0-34.0); MCHC 33.6 g/dL (28.0-37.0); MCV 86.7 fL (80.0-100.0); MONOCYTES 6.3 %; NUCLEATED RBCS 0 /100WBC; PLATELET COUNT* 275 thou/uL (150-400); POLYS 63.8 %; RBC 4.68 mil/uL (4.50-6.00); RDW-CV 13.9 % (10.5-14.5); WBC 9.2 thou/uL (4.0-11.0)
[2019-02-10 10:44] LABS: ANION GAP 10 mmol/L (7-16); BUN 17 mg/dL (7-18); CALCIUM 9.5 mg/dL (8.5-10.1); CHLORIDE 101 mmol/L (98-107); CO2 28 mmol/L (21-32); CREATININE 1.2 mg/dL (0.6-1.3); GLUCOSE 121 mg/dL (70-99); POTASSIUM 3.9 mmol/L (3.5-5.1); SODIUM 139 mmol/L (136-145)
[2019-02-10 10:45] LABS: PROTIME 10.7 Seconds (9.20-11.50)
[2019-02-10 10:55] LABS: ALBUMIN 3.4 g/dL (3.4-5.0); ALKALINE PHOSPHATASE 63 U/L (46-116); LIPASE 155 U/L (73-393); MAGNESIUM 1.8 mg/dL (1.8-2.4); NT-PRO BRAIN NAT PEPTIDE 54 pg/mL (<300); SGOT 40 U/L (15-37); SGPT 52 U/L (30-65); TOTAL BILIRUBIN 0.3 mg/dL (<0.1-1.0); TOTAL PROTEIN 7.5 g/dL (6.4-8.2); TROPONIN-I LEVEL <0.06 ng/mL (<0.06)
[2019-02-10 12:04] LABS: URINE BILIRUBIN NEGATIVE (Negative); URINE BLOOD NEGATIVE (Negative); URINE CLARITY CLEAR; URINE COLOR YELLOW; URINE GLUCOSE-RANDOM NEGATIVE (Negative); URINE KETONES NEGATIVE (Negative); URINE LEUKOCYTES-REFLEX NEGATIVE (Negative); URINE NITRITE-REFLEX NEGATIVE (Negative); URINE PROTEIN NEGATIVE (Negative); URINE SPECIFIC GRAVITY <= 1.005 (1.005-1.030); URINE UROBILINOGEN 0.2 E.U./dl (0.2-1.0)
[2019-02-10 12:20] LABS: URIC ACID* 5.8 mg/dL (2.6-7.2)
[2019-02-10 13:54] VITALS: BP 151/84
[2019-02-10 14:21] VITALS: BP 157/85
[2019-02-10] MEDS ORDERED: VITAMIN D250000 UNIT PO (14:51)
--- NOTE | 2019-02-10 16:03 | EKG ---
[place] [address] ELECTROCARDIOGRAM REPORT Name: BAYORNKASSIE MONO Room: [address] ADM IN .R.#: [id number] Admission: 02/10/19 Attend Phys: Ashish Hawkins Discharge: Date of : 57 Report #: [id number] THIS REPORT FOR: //name// [facility] ED Test Date: 2019-02-10 Test Time: 09:43:41 Pat Name: KASSIE VERMA Department: Room: [facility] Gender: M Human Resource Advisor: : 1955 Requested By: Ernestine Constantino Order Number: [id number] MD: Rob Suarez Measurements Intervals [place] Rate: 67 P: -23 IA: 143 QRS: 6 QRSD: 99 T: 72 QT: 442 QTc: 467 Interpretive Statements sinus rhythm with short pr interval nonspecific t wave changes Probable left atrial enlargement Abnormal R-wave progression, early transition Compared to ECG 02/03/2019 09:42:14 no change Electronically Signed On 02-10-2019 16:03:32 CDT by Rob Suarez [email or web address] <ELECTRONICALLY SIGNED> By: Rob Suarez MD, [facility] 02/10/19 1603 0943 0943 Rob Suarez MD, [facility] /EPI
[2019-02-10 16:37] VITALS: BP 133/77
[2019-02-10 19:40] VITALS: BP 143/78
[2019-02-11] VITALS: BP 150/79
[2019-02-11 04:00] VITALS: BP 113/71
[2019-02-11 07:51] VITALS: BP 156/84
[2019-02-11 12:12] VITALS: BP 106/71
[2019-02-11 15:42] VITALS: BP 94/56
[2019-02-11 19:50] VITALS: BP 125/71
[2019-02-12] VITALS: BP 131/51
[2019-02-12 04:00] VITALS: BP 131/69
[2019-02-12 08:00] VITALS: BP 149/70
--- NOTE | 2019-02-12 10:55 | CON ---
[address] [address] CONSULTATION Name: JOHNFOZIAKASSIE Room: [address] IN M.R.#: [id number] Admission: 02/10/19 Attend Phys: Ashish Hawkins Discharge: Date of : 57 Report #: [id number] THIS REPORT FOR: //name// CC: CORWIN Rubio DATE OF SERVICE: 02/10/2019 CARDIOLOGY CONSULTATION HISTORY OF PRESENT ILLNESS: The patient is a 63-year-old white male who came to the Emergency Room today complaining of chest pain. The patient initially presented in 2014 with chest pain. He had 2 coronary artery stents placed at [facility]. He had to have another stent placed a month later. The patient was admitted here in July of this year with recurrent chest pain. He was found to be having an acute inferior STEMI. I saw him on an emergent basis. He was taken urgently to the cardiac catheterization lab. I performed emergent cardiac catheterization that showed normal left ventricular function. There was a stent in the proximal LAD, had no restenosis. There was a 60% narrowing of a diagonal branch. The circumflex had a stent with 60% restenosis, stent in the marginal branch had 80% restenosis, stent in the proximal right coronary artery appeared to have an ostial 99% stenosis with thrombus. There was a stent in the distal right coronary with 90% restenosis. I was able to place a stent in the ostium of the right coronary artery. However, I was unable to place a stent to the mid right coronary artery because of tortuosity. I was able to balloon the area, but was unable to place a stent. He tolerated the procedure well. He was then placed on Plavix. The patient then had repeat cardiac catheterization on 01/10 when he presented with recurrent angina. This was performed by my partner, Dr. Quiñonez from the right femoral artery. Again, the stent in the LAD had no restenosis. There was an 80% stenosis of the marginal branch of the circumflex. He had a drug-eluting stent placed just distal to the acute margin of the vessel. This required a sundeep wire. He was placed on Effient. The patient recently developed a cough. He was given antitussive medications. The patient is scheduled to be readmitted for stenting of the circumflex. However, when he saw my nurse practitioner last week, this was postponed because of his cough. The patient continues to cough. Today, he was at home when he had an episode of chest pain, felt nauseated and lightheaded. Took 3 nitroglycerin. He came to the Emergency Room and was admitted. He has had no palpitations. He has had swelling. PAST MEDICAL HISTORY: Significant for hernia repair, tonsillectomy. He has a history of hypertension, hyperlipidemia, diabetes. MEDICATIONS: Include Effient, Synthroid, Crestor, Protonix, aspirin, losartan, [place] [address] CONSULTATION Name: AILYNMICHELLEKASSIE Room: [address] IN [facility].#: [id number] Admission: 02/10/19 Attend Phys: Ashish Hawkins Discharge: Date of : 57 Report #: [id number] Imdur, insulin. ALLERGIES: HE HAS A PREVIOUS ALLERGY TO MORPHINE. FAMILY HISTORY: Positive for heart disease. SOCIAL HISTORY: He is . He lives in [place] with his . He is a retired Hospital Nurse Liaison. Quit smoking years ago, rarely uses alcohol. REVIEW OF SYSTEMS: He has had no history of stroke, asthma, peptic ulcer disease, bleeding. He has a history of non-Hodgkin's lymphoma treated with chemotherapy. No chronic skin condition. PHYSICAL EXAMINATION: GENERAL: Revealed an elderly male, lying in bed. He appeared in no distress. VITAL SIGNS: He had a blood pressure of 140/70, pulse 60. He is afebrile. HEENT: He is anicteric. Conjunctivae are pink. Mucous membranes moist. NECK: Veins do not appear distended. No carotid bruits. CHEST: Clear to auscultation. CARDIOVASCULAR: Regular rate and rhythm. ABDOMEN: Soft. EXTREMITIES: Had no edema. Dorsalis pedis pulse 2+ bilaterally. SKIN: Warm and dry. NEUROLOGIC: Nonfocal. RADIOLOGICAL DATA: ECG shows a sinus rhythm with nonspecific T-wave changes. LABORATORY DATA: Today, creatinine 1.2. His troponin is 0.06. Recent TSH was 6.4. White blood cell count 9.2, hemoglobin 13.6. His portable chest x-ray today shows normal heart size, clear lung melissa. He had a CT scan of the chest today with contrast that showed no dissection, no pulmonary embolus. Lungs were otherwise clear. He had a CT scan of the head today without contrast because of confusion that showed only atrophy. His lab work today, his sodium 139, creatinine 1.2. Liver function studies were normal. Troponin 0.06. Last month, he had cholesterol 124, triglyceride 243, HDL 28, LDL 48. His white blood cell count 9.2, hemoglobin 13.6. IMPRESSION AND RECOMMENDATIONS: 1. Unstable angina. The patient is awaiting stenting of the circumflex artery. However, recommend proceeding once his cough has resolved. 2. Hypertension. The patient is on an ARB. Recently, his blood pressure has been low. [address] [address] CONSULTATION Name: KASSIE VERMA MONO Room: [address] IN [facility].#: [id number] Admission: 02/10/19 Attend Phys: Ashish Hawkins Discharge: Date of : 57 Report #: [id number] 3. Hyperlipidemia. The patient is on a statin drug. 4. History of lymphoma. No obvious recurrence. <ELECTRONICALLY SIGNED> By: Rob Suarez MD, FACC 02/12/19 1055 1539 [id number] Suarez MD, FACC /nt
[2019-02-12 11:32] VITALS: BP 100/52
[2019-02-12 15:53] VITALS: BP 125/65
[2019-02-12 19:40] VITALS: BP 129/46
[2019-02-13] VITALS (17 sets, daily range): BP systolic 112–164; BP diastolic 57–90
--- NOTE | 2019-02-13 15:50 | EKG ---
[place] [address] ELECTROCARDIOGRAM REPORT Name: KEREN VERMAY MONO Room: [address] ADM IN M.R.#: [id number] Admission: 02/10/19 Attend Phys: Ashish Hawkins Discharge: Date of : 57 Report #: [id number] THIS REPORT FOR: //name// [facility] Test Date: 2019-02-13 Test Time: 11:18:13 Pat Name: KASSIE VERMA Department: Room: [address] Gender: M Regional Sales Leader: : 1955 Requested By: Rob Suarez Order Number: [id number] Park MD: Rob Suarez Measurements Intervals [place] Rate: 75 P: 45 CA: 167 QRS: 4 QRSD: 112 T: 45 QT: 431 QTc: 482 Interpretive Statements Sinus rhythm Borderline intraventricular conduction delay Borderline prolonged QT interval Compared to ECG 02/10/2019 09:43:41 no change Electronically Signed On 02-13-2019 15:50:11 CDT by Rob Suarez [email or web address] <ELECTRONICALLY SIGNED> By: Rob Suarez MD, [facility] 02/13/19 1550 1118 1118 Rob Suarez MD, [facility] /EPI
--- NOTE | 2019-02-13 16:49 | CARD ---
[address] [address] CARDIAC CATH REPORT Name: KASSIE VERMA MONO Room: [address] IN [facility]#: [id number] Admission: 02/10/19 Attend Phys: Ashish Hawkins Discharge: Date of : 57 Report #: [id number] THIS REPORT FOR: //name// APPROVED REPORT Study performed: 02/13/2019 08:11:18 Patient Details Patient Status: In-Patient Room #: The patient is a 63 year-old male Event Personnel Rob Suarez Industrial Renderer, Jeannie Jones Bowling Ball Marker, Marilia Wild RTR Scrub, Santana Loyd PHYSICIAN LIAISON Monitor, Sheree Best RTR Monitor Procedures Performed Left Heart Cath w/or w/o Coronaries [id number] [facility] VALENTIN Place w/wo Plasty Single CIRC [id number] VALENTIN Place w/wo Plasty Addl BR OM 1 C9601 DESADDL Hemostasis w/ Angioseal Indication Chest pain Risk Factors Hypercholesterolemia, Diabetes Previous Procedures/Diagnoses Previous PCI Admission/Lab Medications/Medications given during procedure Heparin Unfract. Procedure Narrative The patient was brought electively to the Cardiac Catheterization Laboratory and was prepped and draped in a sterile manner. The right femoral was infiltrated with 1% Lidocaine subcutaneous anesthesia. A 6fr Ultimum Sheath sheath was inserted into the RFA. Coronary angiography was performed using coronary diagnostic catheters. The right coronary system was accessed and visualized with a JR 4 6F catheter. The left coronary system was accessed and visualized with a 6FR XB 3.5 100CM catheter. Left ventricular/Aortic Valve gradient assessed via catheter pullback. Closure device was deployed with a 6 Fr Angioseal STS 6Fr. The patient tolerated the procedure well and there were no complications associated with [place] [address] CARDIAC CATH REPORT Name: AILYNTIPFOZIAKASSIE RAY Room: [address] IN [facility]#: [id number] Admission: 02/10/19 Attend Phys: Ashish Hawkins Discharge: Date of : 57 Report #: [id number] no hematoma. Intraoperative Conscious Sedation Sedation start time: 920 Case end Time: 1009 Fluoro Time: 9.4 minutes Dose: DAP [id number] cGycm2 1597 mGy Contrast Type and Amount: Omnipaque 250 ml Coronary Angiography The patient's coronary anatomy is co- dominant. Diagnostic Cath Left Main 0% stenosis LAD proximal stent with 0% stenosis Circumflex proximal 30% stenosis. Stent noted after 1st marginal branch that had 80% restenosis. 60% distal stenosis noted. OM1 proximal stent with distal edge 80% stenosis Right Coronary long stent that started proximally and had 30% stenosis. 50% mid stenosis noted. Left Ventriculography Left Ventriculography was not performed. Hemodynamics The aortic pressure is 183/80 mmHg with a mean of 112 mmHg. The left ventricular pressure is 178/10 mmHg with a mean of mmHg. The left ventricular end diastolic pressure is 16 mmHg. There was no gradient across the aortic valve upon pullback. Pullback from the left ventricle to the aorta revealed no gradient across the aortic valve. PCI Technique Lesion Anticoagulation was achieved with Heparin. Patient was preloaded with Effient. Percutaneous coronary intervention was performed on the mid circumflex artery segment. The lesion stenosis prior to intervention was 80% with FRIDA 3 flow. A 6 fr xb3.5 Guide Catheter was used to engage the LEFT ostium. A IG: BMW 190cm Interventional Guidewire was used to cross the lesion. STENT DEPLOYMENT A drug-eluting stent SUSAN Resolute RX 2.5X12 was inserted and inflated up to 9.00atm for 12seconds. Repeat angiography revealed the following post-stent deployment results: 30% stenosis. Additional Inflation: 22.00atm for 15seconds. [place] [address] CARDIAC CATH REPORT Name: KASSIE VERMA Room: [address] IN [facility]#: [id number] Admission: 02/10/19 Attend Phys: Ashish Hawkins Discharge: Date of : 57 Report #: [id number] Final angiography reveals 0 % stenosis with FRIDA 3 flow. PCI Technique Lesion 2 Percutaneous Coronary Intervention was performed on the first obtuse marginal branch segment. Patient was preloaded with Effient. Percutaneous coronary intervention was performed on the first obtuse marginal branch segment. The lesion stenosis prior to intervention was 80% with FRIDA 3 flow. A 6 fr xb3.5 Guide Catheter was used to engage the LEFT ostium. A IG: BMW 190cm Interventional Guidewire was used to cross the lesion. Stent Deployment A drug-eluting stent SUSAN Resolute RX 2.5X12 was inserted and inflated up to 9.00atm for 11seconds. Repeat angiography revealed the following post-stent deployment results: 0% stenosis. Additional Inflation: 20.00atm for 20seconds. Final angiography reveals 0 % stenosis with FRIDA 3 flow. Conclusion 1. No significant restenosis of stents in proximal lad and rca. 2. 80% stenosis of stent in the mid circumflex and distal edge restenosis of stent in the proximal first marginal branch of the circumflex. 3. successful placement of drug eluting stents in the circumflex and first marginal branch. Recommendations Aggressive Medical Therapy Medications Administered Prasugrel <ELECTRONICALLY SIGNED> By: Rob Suarez MD, [facility] 02/13/19 1648 1648 1648Rob Suarez MD, FAC /INF
[2019-02-13 18:06] LABS: IgA 437 mg/dL (61-437); IgG 1065 mg/dL (700-1600); IgM 89 mg/dL (20-172)
[2019-02-14] VITALS: BP 120/62
[2019-02-14 04:00] VITALS: BP 117/72
[2019-02-14 05:10] LABS: HEMATOCRIT 39.5 % (42.0-52.0); HEMOGLOBIN 13.4 gm/dL (14.0-18.0); MCH 29.6 pg (26.0-34.0); MCHC 33.8 g/dL (28.0-37.0); MCV 87.5 fL (80.0-100.0); MPV 8.5 fl. (7.2-11.1); RBC 4.52 mil/uL (4.50-6.00); RDW-CV 13.9 % (10.5-14.5); WBC 8.9 thou/uL (4.0-11.0)
[2019-02-14 05:28] LABS: CALCIUM 9.2 mg/dL (8.5-10.1); POTASSIUM 3.5 mmol/L (3.5-5.1); TROPONIN-I LEVEL 0.43 ng/mL (<0.06)
[2019-02-14 07:11] VITALS: BP 131/66
[2019-02-14 09:36] VITALS: BP 112/65
--- NOTE | 2019-02-14 10:54 | EKG ---
[place] [address] ELECTROCARDIOGRAM REPORT Name: KEREN VERMAY MONO Room: [address] ADM IN M.R.#: [id number] Admission: 02/10/19 Attend Phys: Ashish Hawkins Discharge: Date of : 57 Report #: [id number] THIS REPORT FOR: //name// [facility] Test Date: 2019-02-14 Test Time: 08:15:10 Pat Name: KASSIE VERMA Department: Room: [address] Gender: M Press Secretary: : 1955 Requested By: Rob Suarez Order Number: [id number] Park MD: Jeffrey Skelton Measurements Intervals [place] Rate: 45 P: 52 MS: 162 QRS: 32 QRSD: 104 T: 72 QT: 485 QTc: 420 Interpretive Statements Sinus bradycardia Nonspecific T-wave flattening Compared to ECG 02/13/2019 11:18:13 Sinus rhythm no longer present Electronically Signed On 02-14-2019 10:54:02 CDT by Jeffrey Skelton [email or web address] <ELECTRONICALLY SIGNED> By: Jeffrey Skelton MD, [facility] 02/14/19 1054 4 4 Jeffrey Skelton MD, [facility] /EPI
[2019-02-14] MEDS ORDERED: NOVOLOG100 UNIT/1 SUBQ (13:04)
[2019-02-14] MEDS ORDERED: COZAAR 50 MG TA50 M1 PO (13:04)
[2019-02-14 13:13] VITALS: BP 112/65
[2019-02-14 14:03] VITALS: BP 112/65
[2019-02-15 11:10] LABS: FREE TESTOSTERONE 12.3 pg/mL (6.6-18.1)
== END 2019-02-14 13:45 | disposition home or self-care (01) | DRG 247 ==
LOC: M.ERS 09:37 → M.2W 12:33 → M.TBA-ER 12:33 → M.2W 14:01
PROVIDERS: Internal Medicine Cardiovascular Disease; Personal Emergency Response Attendant; Psychiatry & Neurology Neurology; ADMIT Internal Medicine
PROC: 027135Z Dilation of Coronary Artery, Two Arteries with Two Drug-eluting Intraluminal Devices, Percutaneous Approach (ICD-10-PCS; principal; 2019-02-13)
PROC: 4A023N7 Measurement of Cardiac Sampling and Pressure, Left Heart, Percutaneous Approach (ICD-10-PCS; principal; 2019-02-13)
PROC: B2111ZZ Fluoroscopy of Multiple Coronary Arteries using Low Osmolar Contrast (ICD-10-PCS; principal; 2019-02-13)
DX: T82.855A Stenosis of coronary artery stent, initial encounter (principal); I25.110 Atherosclerotic heart disease of native coronary artery with unstable angina pectoris; M51.26 Other intervertebral disc displacement, lumbar region; Y84.0 Cardiac catheterization as the cause of abnormal reaction of the patient, or of later complication, without mention of misadventure at the time of the procedure; J40 Bronchitis, not specified as acute or chronic; G89.29 Other chronic pain; M54.9 Dorsalgia, unspecified; N18.3 Chronic kidney disease, stage 3 (moderate); I12.9 Hypertensive chronic kidney disease with stage 1 through stage 4 chronic kidney disease, or unspecified chronic kidney disease; E78.5 Hyperlipidemia, unspecified; E11.22 Type 2 diabetes mellitus with diabetic chronic kidney disease; R00.1 Bradycardia, unspecified; G20 Parkinson's disease; F02.80 Dementia in other diseases classified elsewhere, unspecified severity, without behavioral disturbance, psychotic disturbance, mood disturbance, and anxiety; I25.2 Old myocardial infarction; Z79.899 Other long term (current) drug therapy; Z79.82 Long term (current) use of aspirin; Z82.49 Family history of ischemic heart disease and other diseases of the circulatory system; Z92.21 Personal history of antineoplastic chemotherapy; Z79.4 Long term (current) use of insulin; Z88.8 Allergy status to other drugs, medicaments and biological substances; Z88.6 Allergy status to analgesic agent; Y92.89 Other specified places as the place of occurrence of the external cause; Z90.89 Acquired absence of other organs; Z87.891 Personal history of nicotine dependence; Z95.5 Presence of coronary angioplasty implant and graft; Z85.72 Personal history of non-Hodgkin lymphomas; Z83.3 Family history of diabetes mellitus; Z83.6 Family history of other diseases of the respiratory system; Z80.8 Family history of malignant neoplasm of other organs or systems; Z84.89 Family history of other specified conditions

== ENCOUNTER 2019-04-13 19:23 | Emergency (ER) | payer BC ==
[~2019-04-13] VITALS: Ht 188 cm; Wt 96.2 kg
[~2019-04-13 19:23] MED LIST changes: +COZAAR 50 MG TA50 M1 PO; +VITAMIN D2400 UNIT PO; +VITAMIN D250000 UNIT PO
[2019-04-13] MEDS ORDERED: IMDUR 30 MG TAB30 M1 PO (19:48)
[2019-04-13 20:21] LABS: ABSOLUTE BASOPHILS 0.1 thou/uL (0.0-0.2); ABSOLUTE LYMPHOCYTES 1.8 thou/uL (0.8-5.3); ABSOLUTE MONOCYTES 0.8 thou/uL (0.0-1.2); ABSOLUTE NEUTROPHILS 12.7 thou/uL (1.6-8.1); BASOPHILS 0.6 %; EOSINOPHILS 0.1 %; HEMOGLOBIN 14.3 gm/dL (14.0-18.0); LYMPHOCYTES 11.7 %; MCH 28.9 pg (26.0-34.0); MCHC 34.1 g/dL (28.0-37.0); MCV 84.9 fL (80.0-100.0); MONOCYTES 5.5 %; MPV 8.5 fl. (7.2-11.1); NUCLEATED RBCS 0 /100WBC; PLATELET COUNT* 247 thou/uL (150-400); POLYS 82.1 %; RBC 4.94 mil/uL (4.50-6.00); RDW-CV 13.7 % (10.5-14.5); WBC 15.5 thou/uL (4.0-11.0)
[2019-04-13 20:40] LABS: CALCIUM 9.4 mg/dL (8.5-10.1); POTASSIUM 3.7 mmol/L (3.5-5.1)
[2019-04-13 20:45] LABS: ALBUMIN 3.7 g/dL (3.4-5.0); TOTAL BILIRUBIN 0.8 mg/dL (<0.1-1.0); TOTAL PROTEIN 7.6 g/dL (6.4-8.2)
[2019-04-13 21:18] VITALS: BP 103/66
== END 2019-04-13 21:20 | disposition home or self-care (01) ==
LOC: M.ERS 19:23
PROVIDERS: Family Medicine
DX: K59.00 Constipation, unspecified (principal); R33.9 Retention of urine, unspecified; I25.10 Atherosclerotic heart disease of native coronary artery without angina pectoris; I10 Essential (primary) hypertension; E11.9 Type 2 diabetes mellitus without complications; G20 Parkinson's disease; Z79.4 Long term (current) use of insulin; Z88.4 Allergy status to anesthetic agent; Z88.1 Allergy status to other antibiotic agents; Z88.5 Allergy status to narcotic agent; Z88.8 Allergy status to other drugs, medicaments and biological substances; Z95.5 Presence of coronary angioplasty implant and graft

== ENCOUNTER 2019-11-10 17:03 | Inpatient (IN) | payer BC ==
[~2019-11-10] VITALS: Ht 188 cm; Wt 90.1 kg
--- NOTE | ~2019-11-10 | CON ---
[address] [address] CONSULTATION Name: KASSIE VERMA Room: [place] [address] ADM IN .R.#: [id number] Admission: 11/10/19 Attend Phys: Eugenia Zaragoza MD Discharge: Date of : 57 Report #: [id number] THIS REPORT FOR: //name// cc: SAM - Claudia family physician/PCP SAM - No family physician/PCP ~ THIS REPORT FOR: //name// CC: SAM physician/PCP Eugenia Zaragoza DATE OF SERVICE: 11/13/2019 HISTORY OF PRESENT ILLNESS: This is a 64-year-old male patient who was evaluated by me for memory loss. This patient does not provide any reliable history. I reviewed the patient's prior records and I talked to the patient's in detail. It would appear he was admitted some time ago and was seen by Dr. Garcia and Dr. Lyle. It looks like his memory problems are going on for some time. It started more than 1 year ago. It started in relation to taking any chemotherapy, but has progressively become worse. The does not believe the patient is depressed and the patient himself does not believe that he is depressed. He had an MRI done, the last time and that does not show any definite abnormality. He also appeared to have coronary artery disease and he has deferred any further evaluation and management in that regard. The last time he has also declined any spinal tap. He is admitted with thoracic pain and last time plan was to get an MRI done. He has some Parkinson features also. REVIEW OF SYSTEMS: Positive for prior history of lymphoma. He was treated and he is in remission for that. He denies any prior history of stroke. He does appear to have coronary artery disease as per notes from Cardiology. Does have a history of chest pain consistent with unstable angina. He does have a history of diabetes. This was his relevant 14-point review of system. PAST MEDICAL HISTORY: Positive for lymphoma. FAMILY HISTORY: Unremarkable. SOCIAL HISTORY: He said he used to smoke, but does not smoke now. He does not drink any alcohol. PHYSICAL EXAMINATION: Indicate this patient is alert and responsive. He did not know what date it is. He was able to tell me what month it is. Memory is very poor. His speech looks intact. His cranial nerve examination appears mostly unremarkable. Neuromuscular examination as checked for strength, sensation, reflexes and tone is symmetrical. He does not have any respiratory difficulty. His cardiac examination is unremarkable. Pulses are difficult to tell. Blood pressure is 148/81, respiration is 16, pulse is running in 40s, [place] [address] [place] [address] CONSULTATION Name: KASSIE VERMA Room: [place] [address] ADM IN .R.#: [id number] Admission: 11/10/19 Attend Phys: Eugenia Zaragoza MD Discharge: Date of : 57 Report #: [id number] temperature is 98.4. He had imaging studies in the past, but did not have at this time. IMPRESSION AND PLAN: Clinically, it would appear this patient has dementia. I do not know the etiology of the patient's dementia. Last time, his TSH and vitamin B12 was done and it was unremarkable except a B12 was high. I again discussed the spinal tap with the patient. If a spinal tap needs to be done, this patient needs to come off of antiplatelet. I am not sure whether that is feasible or not. He is not interested in that and he has declined that the last time though. He is going to talk to his and let us know. I will repeat the MRI to make sure there is no opportunistic infection as appeared. I will also try to get an EEG done in this patient. If he does have some Parkinson feature and he does have dementia, then possibility of Lewy body dementia needs to be considered. Unfortunately, none of these condition is treatable and it does not look like pseudodementia, but as an outpatient, he should have a full battery of neuropsychological testing. By: 1118 1146León Baig MD /velia
--- NOTE | ~2019-11-10 | EEG ---
[address] [address] EEG STUDY REPORT Name: KASSIE VERMA Room: [place] [address] ADM IN M.R.#: [id number] Admission: 11/10/19 Attend Phys: Eugenia Zaragoza MD Discharge: Date of : 57 Report #: [id number] THIS REPORT FOR: //name// CC: [facility] physician/PCP Eugenia Zaragoza DATE OF SERVICE: 11/14/2019 This patient is being evaluated for altered mental status. The patient's EEG was done by placing the electrode by standard 10-20 system of electrode placement. Both referential and sequential montages were used for recording. Background activity in this patient's EEG is about 8 Hz and 30 microvolt. It is a symmetrical activity. The patient became drowsy that is associated with bilateral slowing and vertex sharp waves. Photic stimulation is unremarkable. Throughout the record, no active epileptiform activity was noticed. IMPRESSION: This patient's EEG is moderately abnormal because it is intermixed with theta range slowing on both sides. That is a nonspecific abnormality, which can occur with encephalopathy, effect of psychotropic medication, dementia, etc. No active epileptiform activity was noticed. Thank you very much for this referral. By: 1435 1450Parjonathon Baig MD /nt
[~2019-11-10 17:03] MED LIST changes: +VITAMIN D210 MCG PO; -VITAMIN D250000 UNIT PO
[2019-11-10 17:13] VITALS: BP 112/73
[2019-11-10 17:29] LABS: ABSOLUTE BASOPHILS 0.1 thou/uL (0.0-0.2); ABSOLUTE EOSINOPHILS 0.1 thou/uL (0.0-0.7); ABSOLUTE LYMPHOCYTES 2.8 thou/uL (0.8-5.3); ABSOLUTE MONOCYTES 0.9 thou/uL (0.0-1.2); ABSOLUTE NEUTROPHILS 6.8 thou/uL (1.6-8.1); EOSINOPHILS 1.1 %; HEMATOCRIT 41.5 % (42.0-52.0); LYMPHOCYTES 26.3 %; MCH 28.3 pg (26.0-34.0); MCHC 33.9 g/dL (28.0-37.0); MCV 83.6 fL (80.0-100.0); MONOCYTES 7.9 %; MPV 8.6 fl. (7.2-11.1); NUCLEATED RBCS 0 /100WBC; PLATELET COUNT* 220 thou/uL (150-400); POLYS 63.7 %; RBC 4.96 mil/uL (4.50-6.00); RDW-CV 15.4 % (10.5-14.5); WBC 10.7 thou/uL (4.0-11.0)
[2019-11-10 17:37] LABS: APTT 26.6 Seconds (25.0-31.3); PROTIME 10.6 Seconds (9.20-11.50)
[2019-11-10 17:52] LABS: CALCIUM 8.7 mg/dL (8.5-10.1); CREATININE 1.1 mg/dL (0.6-1.3); POTASSIUM 4.1 mmol/L (3.5-5.1)
[2019-11-10 18:07] LABS: ALBUMIN 3.3 g/dL (3.4-5.0); MAGNESIUM 1.6 mg/dL (1.8-2.4); TOTAL BILIRUBIN 0.4 mg/dL (<0.1-1.0); TOTAL PROTEIN 7.2 g/dL (6.4-8.2)
[2019-11-10 18:58] VITALS: BP 171/73
[2019-11-10 20:00] VITALS: BP 158/79
[2019-11-10] MEDS ORDERED: HUMALOG100 UNIT/1 SUBQ (22:01)
[2019-11-10] MEDS ORDERED: NEURONTIN 300M300 M2 PO (22:02)
[2019-11-10 23:51] VITALS: BP 141/72
[2019-11-11 04:03] VITALS: BP 136/78
--- NOTE | 2019-11-11 06:16 | NUR ---
PATIENT ARRIVED ON FLOOR ABOUT 1845 FROM ER PRIOR TO SHIFT CHANGE. ADMISSION HISTORY AND ASSESSMENT WAS COMPLETED CHARTED. PATIENT HAS HAD NO MORE COMPLAINTS OF CHEST PAIN. PATIENT HAS BEEN NPO SINCE MIDNIGHT FOR CARDIOLOGY CONSULT. WILL CONTINUE TO MONITOR.
[2019-11-11 08:00] VITALS: BP 128/66
[2019-11-11 12:37] VITALS: BP 147/75
[2019-11-11 17:11] VITALS: BP 105/57
[2019-11-11 20:00] VITALS: BP 106/52
[2019-11-12] VITALS: BP 100/59
[2019-11-12 04:00] VITALS: BP 90/48
--- NOTE | 2019-11-12 05:24 | NUR ---
ASSUMED PATIENT CARE AT 1900. ASSESSMENT COMPLETED CHARTED. PATIENT IS SB ON THE MONITOR. HOURLY ROUNDING IN PLACE FOR PATIENT SAFETY. CLWR.
[2019-11-12 08:00] VITALS: BP 104/58
--- NOTE | 2019-11-12 10:30 | NUR ---
REPORT RECIEVED FROM PHYSICAL THERAPY THAT PT REQUIRED WALKER FOR WALKING SHORT DISTANCES AND HAD ISSUES WITH TURNING. WOULD RECOMMEND CM TO ASSESS NEEDS FOR HOME HEALTH AND POSSIBLE WALKER.
[2019-11-12 12:00] VITALS: BP 120/63
--- NOTE | 2019-11-12 12:23 | CON ---
[address] [address] CONSULTATION Name: KASSIE VERMA Room: [place] [address] ADM IN M.R.#: [id number] Admission: 11/10/19 Attend Phys: Eugenia Zaragoza MD Discharge: Date of : 57 Report #: [id number] THIS REPORT FOR: //name// cc: SAM - Claudia family physician/PCP SAM - No family physician/PCP ~ THIS REPORT FOR: //name// CC: [facility] physician/PCP CORWIN NAVARRO DO Eugenia Zaragoza CARDIOLOGY CONSULT INDICATION: Chest pain. HISTORY OF PRESENT ILLNESS: The patient is a very pleasant 64-year-old gentleman with known coronary artery disease. He has had multiple stents placed in the past. He has stents in the right coronary artery remotely. Last February, he had stenting of the circumflex and obtuse marginal branches. He remains on dual antiplatelet therapy. He presented to the hospital with complaints of chest discomfort that was substernal and pressure for 25-30 minutes. He was given aspirin and nitroglycerin by EMS, which relieved the pain. He has had no recurrence. EKG shows sinus bradycardia with flattened T waves, but no ST segment abnormalities. He has ruled out for myocardial infarction. Here in the hospital, he had no recurrence of his pain. Risk factors include dyslipidemia, hypertension, and type 2 diabetes mellitus. The patient also has Parkinson disease, which appears to be progressive. PAST MEDICAL HISTORY: 1. Coronary artery disease. 2. Dyslipidemia. 3. Type 2 diabetes mellitus. 4. Hypertension. 5. Parkinson disease. 6. Remote history of lymphoma. PAST SURGICAL HISTORY: Herniated lumbar disk, tonsillectomy and hernia repair. FAMILY HISTORY: Positive for coronary artery disease in the patient's father, mother and sister. SOCIAL HISTORY: The patient is . He does not smoke. [place] [address] CONSULTATION Name: KASSIE VERMA Room: [address]#: [id number] Admission: 11/10/19 Attend Phys: Eugenia Zaragoza MD Discharge: Date of : 57 Report #: [id number] ALLERGIES: SIMVASTATIN, MORPHINE, CEPHALEXIN AND FENTANYL. CURRENT MEDICATIONS: Aspirin 81 mg daily, Neurontin 300 mg b.i.d., insulin before meal and at bedtime, levothyroxine 75 mcg daily, Nitrostat sublingual p.r.n., Effient 10 mg daily, Crestor 40 mg daily, vitamin D2 5000 units daily. REVIEW OF SYSTEMS: A 14-point review of systems positive for chest discomfort as outlined above. He has had some dyspnea on exertion. He reports occasional edema. He reports diabetes and hypothyroidism. He reports a history of lymphoma. He has medical allergies outlined above and he wears glasses for distance. Otherwise, 14-point review of systems was unremarkable. PHYSICAL EXAMINATION: VITAL SIGNS: Stable. Blood pressure 128/66, pulse 45 and regular. GENERAL: This is a pleasant gentleman who is in no distress. Affect somewhat blunted. HEENT: Eyes, extraocular muscles intact. Mucous membranes are moist. NECK: Shows no jugular venous distention. There are no carotid bruits. CHEST: Reveals clear lung melissa. CARDIOVASCULAR: Reveals a regular rhythm with normal S1 and S2. I do not appreciate gallop or murmur. ABDOMEN: Reveals normal bowel sounds. The abdomen is soft, nontender. EXTREMITIES: Shows no edema. Peripheral pulses are 2+ and easily palpable. SKIN: Dry. LABORATORY DATA: Troponins are negative x 3 sets. Chest x-ray shows no acute cardiopulmonary abnormality. IMPRESSION AND RECOMMENDATIONS: 1. Chest pain consistent with unstable angina. We did discuss invasive evaluation with possible repeat intervention. The patient deferred to medical management at this time. I will add long-acting nitroglycerin to his current home regimen. No other changes at this point in time. Continue dual antiplatelet therapy. 2. Coronary artery disease as outlined above. He had intervention in 02/2019. He remains on dual antiplatelet therapy at this time. Continue risk factor modification. 3. Dyslipidemia. The patient is on Crestor 40 mg daily. I would continue this. 4. Diabetes per primary physician. <ELECTRONICALLY SIGNED> By: Jeffrey Skelton MD, FACC 11/12/19 1223 1104 1142Michael Terri Skelton MD, FACC /nt
--- NOTE | 2019-11-12 14:43 | EKG ---
[place] [address] ELECTROCARDIOGRAM REPORT Name: JOHNFOZIAKASSIE MONO Room: [place] [address] ADM IN M.R.#: [id number] Admission: 11/10/19 Attend Phys: Eugenia Zaragoza, Discharge: Date of : 57 Date of Service: 11/10/19 1708 Report #: [id number] THIS REPORT FOR: //name// [facility] ED Test Date: 2019-11-10 Test Time: 17:08:47 Pat Name: KASSIE VERMA Department: Room: [facility] Gender: M Sales Operations Specialist: : 1955 Requested By: Ben Sahu Order Number: [id number] MD: Jeffrey Skelton Measurements Intervals [place] Rate: 52 P: 33 MA: 54 QRS: 8 QRSD: 124 T: 89 QT: 477 QTc: 444 Interpretive Statements Sinus rhythm Atrial premature complex Short MA interval Borderline repolarization abnormality Compared to ECG 02/14/2019 08:15:10 Atrial premature complex(es) now present Short MA interval now present Sinus bradycardia no longer present T-wave abnormality no longer present Electronically Signed On 11-12-2019 14:41:18 CDT by Jeffrey Skelton [email or web address] <ELECTRONICALLY SIGNED> By: Jeffrey Skelton MD, [facility] 11/12/19 1441 1708 1708 Jeffrey Skelton MD, [facility] /EPI
[2019-11-12 16:00] VITALS: BP 114/56
--- NOTE | 2019-11-12 17:22 | NUR ---
PT HAS RESTED T/O DAY WITHOUT COMPLAINTS. VSS ON RA. SB ON MONITOR. LISPRO ADJUSTED TO MEET INCREASED GLUCOSE FROM 10 TO 20 UNITS. NO FURTHER REQUEST.CLWR
[2019-11-12 20:00] VITALS: BP 130/63
[2019-11-13 01:00] VITALS: BP 155/70
[2019-11-13 05:16] VITALS: BP 130/65
--- NOTE | 2019-11-13 06:07 | NUR ---
ASSUMED PATIENT CARE AT 1900. ASSESSMENT COMLETED CHARTED. PATIENT IS NSR ON THE MONITOR. HOURLY ROUNDING IN PLACE FOR PATIENT SAFETY. CLWR.
[2019-11-13 08:00] VITALS: BP 148/81
[2019-11-13] MEDS ORDERED: IMDUR 30 MG TAB30 M1 PO (09:53)
[2019-11-13 12:00] VITALS: BP 109/62
--- NOTE | 2019-11-13 16:31 | NUR ---
SPOKE WITH PT. HE SAID HE LIVES WITH HIS . SHE ASSISTS HIM NEEDED. HE NEEDS ASSIST WITH BATHING. HE USES NO DME, NORMALLY. HE WALKS ABOUT A MILE A DAY WITH HIS . SHE HOLDS HIS HAND. P.T. RECOMMENDING A FRONT WHEEL WALKER AT DISCHARGE. SAID PROBABLE DISCHARGE IN 1-2 DAYS. HE WILL NEED HOME HEALTH. PT.SAID HE WOULD SPEAK WITH HIS ABOUT IT. HE DECLINED HH LAST YEAR. ATTEMPTED TO CONTACT [employer] BUT NO ANSWER TO CHECK TO SEE IF THEY CONTRACT WITH HIS INS. WILL CALL AGAIN IN AM.
[2019-11-13 17:24] VITALS: BP 141/68
--- NOTE | 2019-11-13 18:04 | NUR ---
ASSUMED CARE OF PT APPROX 0730. REASSESMENT COMPLETED CHARTED. MEDICATIONS GIVEN CHARTED. PT UP TO BEDSIDE CHAIR THIS AFTERNOON. SAFTEY PRECAUTIONS UTILIZED, HOURLY ROUNDING. PLAN OF CARE DISCUSSED WITH PHYSICIAN, RADIOLOGY PT AND PTS . SAFTEY PRECAUTIONS UTILIZED, BED IN LOW POSITION AND CALL LIGHT WITHIN REACH. HOURLY ROUNDING.
[2019-11-13 20:00] VITALS: BP 120/63
[2019-11-14] VITALS: BP 154/74
[2019-11-14 04:00] VITALS: BP 139/62
[2019-11-14 08:00] VITALS: BP 146/73
--- NOTE | 2019-11-14 09:11 | NUR ---
PT WAS ALERT TO SELF, HOSPITAL, AND SITUATION IN GENERAL, BUT BECAME MORE CONFUSED INTO THE EVENING. WALKED ACROSS THE [facility] INTO ANOTHER ROOM WHERE THIS RN WAS SPEAKING TO A DIFFERENT PT AND ASKED IF SOMEOME WAS DYING. AND TOLD THE PT HE "COULD EAT BURNT TOAST" TO HELP WITH HIS NAUSEA. PT ALSO REPORTED TO DEVELOPMENT OFFICER THAT THERE WAS A DOG IN HIS ROOM. REDIRECTED PT BACK TO ROOM AND REORIENTED TO REALITY NEEDED. PT WAS ABLE TO RECALL SOME THINGS SUCH WHAT THIS NURSE HAD BROUGHT HIM TO DRINK EARLIER IN THE SHIFT AND THAT HE WILL HAVE A LUMBAR PUNCTURE IN A FEW DAYS. REFERENCE LIBRARY ASSISTANT NOTIFED OF PT'S CONFUSION. PRN ATIVAN AND HALDOL ORDERED- BUT NOT NEEDED. PT HAD BEEN GIVEN BENADRYL AFTER BEING TAKEN BACK TO ROOM AND BED ALARM PUT ON. DID NOT LEAVE ROOM REST OF SHIFT.
[2019-11-14 09:19] VITALS: BP 146/73
[2019-11-14 10:48] VITALS: BP 146/73
--- NOTE | 2019-11-14 11:16 | NUR ---
PT RESTING IN BED,CLWR. C/O NAUSEA. IV ZOFRAN MANAGED IT QUICKLY. PT TO HAVE EEG THIS AM. PT TO DC HOME THIS AFTERNOON. PT EDUCATED ON IMPORTANCE OF CALLING FOR ASSISTANCE. PT STILL NON COMPLIANT.HELEN
[2019-11-14 13:47] VITALS: BP 146/73
--- NOTE | 2019-11-14 13:48 | NUR ---
Pt discharging today, dtr to clam picker at 3pm. Updated nurse. declined HH at this time, but will call CM tomorrow if she changes her mind, CM provided with with CM contact info.
== END 2019-11-14 15:01 | disposition home or self-care (01) | DRG 303 ==
LOC: M.ERS 17:03 → M.2W 17:49 → M.TBA-ER 17:49 → M.2W 18:42
PROVIDERS: Emergency Medicine; ADMIT Internal Medicine
DX: I25.110 Atherosclerotic heart disease of native coronary artery with unstable angina pectoris (principal); R41.3 Other amnesia; E11.9 Type 2 diabetes mellitus without complications; I25.2 Old myocardial infarction; I10 Essential (primary) hypertension; E78.5 Hyperlipidemia, unspecified; G20 Parkinson's disease; Z82.49 Family history of ischemic heart disease and other diseases of the circulatory system; Z95.5 Presence of coronary angioplasty implant and graft; Z85.72 Personal history of non-Hodgkin lymphomas; Z88.6 Allergy status to analgesic agent; Z88.8 Allergy status to other drugs, medicaments and biological substances

== ENCOUNTER → 2019-11-29 | Outpatient (CLI) | payer BC ==
[~2019-11-29] MED LIST changes: +HUMALOG100 UNIT/1 SUBQ; +NEURONTIN 300M300 M2 PO
[2019-11-29 08:56] LABS: APTT 27.1 Seconds (25.0-31.3); INR 1.1; PROTIME 10.8 Seconds (9.20-11.50)
[2019-11-29 12:33] LABS: CSF GLUCOSE 99 mg/dl (40-70)
[2019-11-29 13:44] LABS: CSF CLARITY CLEAR; CSF COLOR COLORLESS; CSF RBC 88 /mm3; CSF WBC 3 /mm3 (0-10); VOLUME 20.5 ml
[2019-12-01 13:09] LABS: CSF ALBUMIN 31 mg/dL (11-48); CSF IGG INDEX 0.5 (0.0-0.7); CSF IgG 3.9 mg/dL (0.0-8.6); CSF/SERUM ALBUMIN INDEX 7 (0-8)
== END | disposition home or self-care (01) ==
LOC: M.LAB 08:00 → M.RAD 09:00
PROVIDERS: Psychiatry & Neurology Neuromuscular Medicine
DX: M54.5 Low back pain (principal); I25.10 Atherosclerotic heart disease of native coronary artery without angina pectoris; E78.5 Hyperlipidemia, unspecified; E11.9 Type 2 diabetes mellitus without complications; F03.90 Unspecified dementia, unspecified severity, without behavioral disturbance, psychotic disturbance, mood disturbance, and anxiety; Z98.890 Other specified postprocedural states; Z79.899 Other long term (current) drug therapy; Z79.01 Long term (current) use of anticoagulants

== ENCOUNTER → 2020-09-25 | Outpatient (CLI) | payer MEDICARE, BC | LOC: M.MRI 14:30 | PROVIDERS: ATTEND Psychiatry & Neurology Neurology | DX: I67.82 Cerebral ischemia (principal); G20 Parkinson's disease ==

== ENCOUNTER → 2020-10-28 | Outpatient (CLI) | payer MEDICARE, BC ==
--- NOTE | ~2020-10-28 | EEG ---
[place] [address] EEG STUDY REPORT Name: KASSIE VERMA Room: [facility]#: [id number] Admission: 10/28/20 Attend Phys: Yeimy Braxton Discharge: Date of : 57 Report #: [id number] THIS REPORT FOR: cc: Yeimy Scanlon Kathleen M. DO Khosla, Parveen K. MD ~ DATE OF SERVICE: 10/28/2020 This patient is being evaluated for question of seizure. EEG was done by placing the electrode by standard 10-20 system of electrode placement. Both referential and sequential montages were used for recording. Background activity in this patient's EEG is about 6 Hz and 30 microvolts. It is a poorly formed background activity and it is monotonously abnormal and disorganized and poorly formed. The photic stimulation is unremarkable. No active epileptiform activity was noticed. IMPRESSION: This is an abnormal EEG because it is disorganized and poorly formed. That is a nonspecific abnormality, which can occur with encephalopathy, effect of psychotropic medication, dementia, etc. Clinical correlation is recommended. By: [id number] Baig MD /nt
== END ==
LOC: M.CRD 12:12
PROVIDERS: ATTEND Family Medicine
DX: R56.9 Unspecified convulsions (principal)

== ENCOUNTER 2020-11-12 05:30 | Observation (INO) | payer MEDICARE, BC ==
[~2020-11-12] VITALS: Ht 182.9 cm; Wt 98.9 kg
[2020-11-12 05:31] VITALS: BP 148/83
[2020-11-12] MEDS ORDERED: PROTONIX40 M2 PO (05:38)
[2020-11-12] MEDS ORDERED: EFFIENT10 MG PO (05:38)
[2020-11-12] MEDS ORDERED: CARBIDOPA-LEVO1 EAC1 (05:40)
[2020-11-12 06:02] LABS: ABSOLUTE BASOPHILS 0.1 thou/uL (0.0-0.2); ABSOLUTE EOSINOPHILS 0.1 thou/uL (0.0-0.7); ABSOLUTE LYMPHOCYTES 2.3 thou/uL (0.8-5.3); ABSOLUTE MONOCYTES 0.6 thou/uL (0.0-1.2); ABSOLUTE NEUTROPHILS 5.4 thou/uL (1.6-8.1); BASOPHILS 1.1 %; EOSINOPHILS 0.7 %; HEMATOCRIT 42.9 % (42.0-52.0); HEMOGLOBIN 13.9 gm/dL (14.0-18.0); LYMPHOCYTES 27.5 %; MCHC 32.3 g/dL (28.0-37.0); MCV 80.5 fL (80.0-100.0); MONOCYTES 7.6 %; MPV 8.1 fl. (7.2-11.1); NUCLEATED RBCS 0 /100WBC; PLATELET COUNT* 265 thou/uL (150-400); POLYS 63.1 %; RBC 5.33 mil/uL (4.50-6.00); RDW-CV 15.5 % (10.5-14.5); WBC 8.5 thou/uL (4.0-11.0)
[2020-11-12 06:13] LABS: CALCIUM 9.1 mg/dL (8.5-10.1); CREATININE 0.9 mg/dL (0.6-1.3)
[2020-11-12 06:16] LABS: APTT 26.2 Seconds (25.0-31.3); PROTIME 10.3 Seconds (9.20-11.50)
[2020-11-12 06:17] LABS: TOTAL BILIRUBIN 0.3 mg/dL (<0.1-1.0); TOTAL PROTEIN 7.5 g/dL (6.4-8.2)
[2020-11-12 07:51] LABS: URINE BILIRUBIN NEGATIVE (Negative); URINE BLOOD TRACE (Negative); URINE CLARITY CLEAR; URINE COLOR YELLOW; URINE GLUCOSE-RANDOM 2+ (Negative); URINE KETONES NEGATIVE (Negative); URINE LEUKOCYTES-REFLEX NEGATIVE (Negative); URINE NITRITE-REFLEX NEGATIVE (Negative); URINE PROTEIN 1+ (Negative); URINE SPECIFIC GRAVITY 1.025 (1.005-1.030); URINE UROBILINOGEN 0.2 E.U./dl (0.2-1.0)
[2020-11-12 08:08] LABS: BACTERIA-REFLEX 1-9 Few /HPF (None Seen); CASTS None Seen /LPF (None Seen); CRYSTALS None Seen /LPF (None Seen); SQUAMOUS 0-3 Few /LPF (0-3); URINE RBC 0-2 Rare /HPF (0-2); URINE WBC-REFLEX 0-5 Rare /HPF (0-5)
--- NOTE | 2020-11-12 08:35 | EKG ---
[place] [address] ELECTROCARDIOGRAM REPORT Name: KASSIE VERMA Room: [place] [address] ADM IN .R.#: [id number] Admission: 11/12/20 Attend Phys: Tiffanie Christopher MD Discharge: Date of : 57 Date of Service: 11/12/20 0601 Report #: [id number] THIS REPORT FOR: //name// [facility] ED Test Date: 2020-11-12 Test Time: 06:01:35 Pat Name: KASSIE VERMA Department: Room: [facility] Gender: M Room Service Food Server: VASILIY : 1955 Requested By: Mehran Corley Order Number: [id number] MD: Jeffrey Skelton Measurements Intervals [place] Rate: 50 P: 30 MO: 157 QRS: 0 QRSD: 100 T: 152 QT: 580 QTc: 529 Interpretive Statements Sinus rhythm Possible left ventricular hypertrophy Nonspecific T wave flattening prolonged QT interval Compared to ECG 11/10/2019 17:08:47 Prolonged QT interval now present Atrial premature complex(es) no longer present Electronically Signed On 11-12-2020 8:35:02 CDT by Jeffrey Skelton [email or web address] <ELECTRONICALLY SIGNED> By: Jeffrey Skelton MD, [facility] 11/12/20 0835 0 0 Jeffrey Skelton MD, [facility] /EPI
[2020-11-12 09:17] VITALS: BP 149/77
== END 2020-11-12 18:25 ==
LOC: M.ERS 05:30 → M.ORTHSURG 06:50 → M.TBA-ER 06:50 → M.ORTHSURG 09:17
PROVIDERS: Family Medicine; ADMIT Family Medicine; ATTEND Family Medicine
DX: M25.552 Pain in left hip (principal); E11.65 Type 2 diabetes mellitus with hyperglycemia; Z20.822 Contact with and (suspected) exposure to COVID-19; G20 Parkinson's disease; I10 Essential (primary) hypertension; R41.0 Disorientation, unspecified; E87.1 Hypo-osmolality and hyponatremia; I25.10 Atherosclerotic heart disease of native coronary artery without angina pectoris; Z88.1 Allergy status to other antibiotic agents; Z88.5 Allergy status to narcotic agent

== ENCOUNTER 2020-12-30 06:07 | Emergency (ER) | payer MEDICARE, BC ==
[~2020-12-30] VITALS: Ht 188 cm; Wt 90.3 kg
[~2020-12-30 06:07] MED LIST changes: +CARBIDOPA-LEVO1 EAC1; +PROTONIX40 M2 PO
[2020-12-30] MEDS ORDERED: NORVASC5 MG PO (06:29)
[2020-12-30] MEDS ORDERED: ADULT ASPIRIN R81 MG PO (06:29)
[2020-12-30] MEDS ORDERED: TUMS200 MG PO (06:35)
[2020-12-30] MEDS ORDERED: SINEMET 10-1001 EAC1 PO (06:36)
[2020-12-30 06:37] LABS: HEMATOCRIT 39.9 % (42.0-52.0); HEMOGLOBIN 13.3 gm/dL (14.0-18.0); MCH 27.8 pg (26.0-34.0); MCHC 33.4 g/dL (28.0-37.0); MPV 7.6 fl. (7.2-11.1); RBC 4.81 mil/uL (4.50-6.00); RDW-CV 17.5 % (10.5-14.5); WBC 11.2 thou/uL (4.0-11.0)
[2020-12-30] MEDS ORDERED: HALDOL 0.5 MG0.5 MG PO (06:37)
[2020-12-30] MEDS ORDERED: HUMALOG100 UNIT/1 SUBQ (06:37)
[2020-12-30] MEDS ORDERED: LEVO-T75 MCG PO (06:41)
[2020-12-30] MEDS ORDERED: MELATONIN3 M1 PO (06:43)
[2020-12-30] MEDS ORDERED: LIDODERM1 EACH TOP (06:43)
[2020-12-30] MEDS ORDERED: TYLENOL325 M1 PO (06:44)
[2020-12-30] MEDS ORDERED: NITROSTAT0.4 M1 SUBLING (06:44)
[2020-12-30] MEDS ORDERED: MIRALAX17 G1 PO (06:45)
[2020-12-30] MEDS ORDERED: TYLENOL 8 HOUR650 MG PO (06:45)
[2020-12-30] MEDS ORDERED: CRESTOR20 MG PO (06:45)
[2020-12-30] MEDS ORDERED: HYDROCODON-ACE1 EAC7 PO (06:46)
[2020-12-30 06:47] LABS: POTASSIUM 3.5 mmol/L (3.5-5.1)
[2020-12-30] MEDS ORDERED: IMDUR 30 MG TAB30 M1 PO (06:51)
[2020-12-30 06:52] LABS: ALBUMIN 3.4 g/dL (3.4-5.0); TOTAL BILIRUBIN 0.5 mg/dL (<0.1-1.0); TOTAL PROTEIN 7.8 g/dL (6.4-8.2)
[2020-12-30] MEDS ORDERED: LEVEMIR100 UNIT/1 SUBQ (06:55)
[2020-12-30 07:05] LABS: ACETAMINOPHEN < 2 ug/mL (10-30); ALCOHOL < 10 mg/dL (<10); SALICYLATE < 2.8 mg/dL (2.8-20.0)
[2020-12-30 09:23] LABS: URINE BILIRUBIN NEGATIVE (Negative); URINE BLOOD TRACE (Negative); URINE CLARITY CLEAR; URINE COLOR YELLOW; URINE GLUCOSE-RANDOM 1+ (Negative); URINE KETONES TRACE (Negative); URINE LEUKOCYTES NEGATIVE (Negative); URINE NITRITE NEGATIVE (Negative); URINE PROTEIN TRACE (Negative); URINE SPECIFIC GRAVITY 1.015 (1.005-1.030); URINE UROBILINOGEN 0.2 E.U./dl (0.2-1.0)
[2020-12-30 09:30] LABS: AMP/METHAMP Negative (Negative); BARBITURATES Negative (Negative); BENZODIAZEPINES Negative (Negative); COCAINE Negative (Negative); METHADONE Negative (Negative); OPIATES Negative (Negative); PCP Negative (Negative); THC Negative (Negative)
[2020-12-30 14:24] VITALS: BP 152/60
== END 2020-12-30 14:26 ==
LOC: M.ERS 06:07
PROVIDERS: Personal Emergency Response Attendant
DX: S81.011A Laceration without foreign body, right knee, initial encounter (principal); Z20.822 Contact with and (suspected) exposure to COVID-19; S80.212A Abrasion, left knee, initial encounter; F91.1 Conduct disorder, childhood-onset type; F03.91 Unspecified dementia, unspecified severity, with behavioral disturbance; E11.9 Type 2 diabetes mellitus without complications; I25.10 Atherosclerotic heart disease of native coronary artery without angina pectoris; I10 Essential (primary) hypertension; Z95.5 Presence of coronary angioplasty implant and graft; Z79.4 Long term (current) use of insulin; Z88.1 Allergy status to other antibiotic agents; Z88.5 Allergy status to narcotic agent; Z88.6 Allergy status to analgesic agent; Z88.8 Allergy status to other drugs, medicaments and biological substances; X58.XXXA Exposure to other specified factors, initial encounter; Y93.89 Activity, other specified; Y92.89 Other specified places as the place of occurrence of the external cause; Y99.8 Other external cause status